=== PATIENT | female | born 1950 | race Caucasian/White ===

== ENCOUNTER 2017-04-26 00:44 | Emergency (ER) | payer OTHER ==
[2017-04-26] MEDS ORDERED: DILAUDID INJ IM ONE (00:56)
[2017-04-26] MEDS ORDERED: DILAUDID INJ ONE (00:59)
[2017-04-26 01:07] VITALS: BMI 30.2
[2017-04-26 01:17] LABS: BASOPHILS # (AUTO) 0.1 X10^3/uL (0.0-0.1); BASOPHILS % (AUTO) 0.8 % (0.2-1.0); EOSINOPHILS # (AUTO) 0.2 x10^3/uL (0.0-0.2); HEMATOCRIT 37.3 % (36.0-47.0); HEMOGLOBIN 12.6 g/dL (12.0-16.0); LYMPHOCYTES # (AUTO) 1.6 X10^3/uL (1.3-2.9); LYMPHOCYTES % (AUTO) 18.3 % (21.0-51.0); MEAN CORPUSCULAR HEMOGLOBIN 28.5 pg (27.0-34.0); MEAN CORPUSCULAR HGB CONC 33.7 g/dL (33.0-35.0); MEAN CORPUSCULAR VOLUME 84.6 fL (80.0-100.0); MONOCYTES # (AUTO) 0.8 x10^3/uL (0.3-0.8); MONOCYTES % (AUTO) 9.4 % (0.0-13.0); NEUTROPHILS # (AUTO) 5.9 x10^3/uL (2.2-4.8); NEUTROPHILS % (AUTO) 69.5 % (42.0-75.0); PLATELET COUNT 145 X10^3/uL (150.0-450.0); RED CELL DISTRIBUTION WIDTH 14.5 % (11.6-16.5); WHITE BLOOD COUNT 8.5 X10^3/uL (3.6-10.0)
--- NOTE | 2017-04-26 01:51 | CT ---
EXAM: CT left hip without contrast INDICATION: Left hip pain COMPARISION: No prior, no x-ray was ordered. TECHNIQUE: Axial CT examination left hip was performed. Coronal and sagittal reconstructions were created using the axial data. FINDINGS: No acute fracture or dislocation. The joint spaces are preserved. The soft tissues are normal. No ra diopaque foreign body. IMPRESSION: 1: No acute abnormality Reported By:
--- NOTE | 2017-04-26 01:52 | CT ---
EXAM: CT LUMBAR SPINE WITHOUT CONTRAST INDICATION: Falls, low back pain COMPARISION: No priors TECHNIQUE: Axial CT examination of the lumbar spine was performed without intravenous contrast. Coronal and sag ittal planes were reconstructed using the axial data. FINDINGS: Exam is limited due to the presence of metal implants which creates artifact and image degradation. There is bilateral pedicle screw and gabino fusion from L2 through L5. Interbody fusion is present as w ell. No acute fracture or subluxation. There is normal alignment of the lumbar spine. The central ca nal and neural foramen are obscured due to the metal artifact. IMPRESSION: Surgical fusion noted. Pedicle screw and gabino fusion from L2 through L5 is present. No acute abnormal ity. Reported By:
--- NOTE | 2017-04-26 01:58 | DR.GENAD ---
HPI - Complaint/Symptoms Chief Complaint Doctors Comments: Patient states that she has been falling a lot. She fell yesterday at 1700 now has lumbar and left hip pain. She admits to using a walker infrequently in [place] of a cane. 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 Surgery, Hysterectomy, Mastectomy, Ortho Surgery (Back surgery) - Family History Family Medical History: Diabetes Mellitus, Cancer, [place], Hypertension - Social History Do you use any recreational Drugs:: No ROS - Review of Systems Eyes: No Symptoms Reported ENTM: No Symptoms Reported Respiratoy: No Symptoms Reported Cardiovascular: No Symptoms Reported Gastrointestinal/Abdominal: No Symptoms Reported Genitourinary: No Symptoms Reported Neurological: No Symptoms Reported Musculoskeletal: No Symptoms Reported Integumentary: No Symptoms Reported Hematologic/Lymphatic: No Symptoms Reported Endocrine: No Symptoms Reported Psychiatric: No Symptoms Reported All Other Systems: Reviewed and Negative PE - Vital Signs Vitals: Blood Pressure [Right Arm] 117/58 Blood Pressure 117/58 - General Limitations: No Limitations General Appearance: Alert, In No Apparent Distress - Head Head Exam: Normal Inspection, Atraumatic - Eyes Eye exam: Normal Appearance, PERRL, EOMI - ENT ENT Exam: Normal Exam External Ear Exam: Normal External Inspection TM/Canal Exam: Bilateral Normal Nose Exam: Normal Nose Exam Mouth Exam: Normal Inspection Throat Exam: Normal Inspection - Neck Neck Exam: Normal Inspection - Chest Chest Inspection: Normal Inspection - Respiratory Respiratory Exam: Bilateral Clear to Auscultation - Cardiovascular Cardiovascular Exam: Regular Rate, Normal Rhythm - Abdominal Exam Abdominal Exam: Normal Inspection, Normal Bowel Sounds - Extremities Extremities Exam: Normal Inspection - Back Back Exam: Normal Inspection, Vertebral Tenderness - Neurologic Neurological Exam: Alert, Oriented X3, CN II-XII Intact - Psychiatric Psychiatric Exam: Normal Affect, Normal Mood - Skin Skin Exam: Warm, Dry, Intact ROR - XRAY XRAY Interpreted by: Radiologist (Left Hip: No acute abnormality; Lumbar CT: surgical fusion noted. Pedicle screw and gabino fusion from L2 through L5 is present no acute abnormality) - Diagnosis Discharge Problem: Fall as cause of accidental injury at home as place of occurrence Qualifiers: Encounter type: subsequent encounter Qualified Code(s): W19.XXXD - Unspecified fall, subsequent encounter; Y92.009 - Unspecified place in unspecified non- institutional (private) residence as the place of occurrence of the external cause Cellulitis Qualifiers: Site of cellulitis: extremity Site of cellulitis of extremity: lower extremity Laterality: left Qualified Code(s): L03.116 - Cellulitis of left lower limb - Discharge Plan Condition: Stable - Follow ups/Referrals Follow ups/Referrals: Sy Morales [Primary Care Provider] - 3 days - Instructions
[2017-04-26 02:05] VITALS: BP 160/82
[2017-04-26] MEDS ORDERED: AUGMENTIN 500 MG/125 MG TAB PO ONE ×2 (02:13→02:14)
== END 2017-04-26 02:24 | disposition home or self-care (01) ==
LOC: ER 00:44
DX: L03.116 Cellulitis of left lower limb (principal); L53.8 Other specified erythematous conditions; W19.XXXA Unspecified fall, initial encounter; Y92.009 Unspecified place in unspecified non-institutional (private) residence as the place of occurrence of the external cause
CPT/HCPCS: 36415; 72131; 73700; 85025; 86140; 96372; 99283

== ENCOUNTER 2017-06-21 15:53 | Emergency (ER) | payer OTHER ==
[2017-06-21 16:10] VITALS: BMI 33.0
--- NOTE | 2017-06-21 16:18 | DR.GENAD ---
HPI - PCP Primary Care Physician: PAIGE - HPI Comment HPI Comment: HISTORY BELOW. - Complaint/Symptoms Chief Complaint Doctors Comments: FELL AT HOME TODAY, SEVERAL TIMES. COMPLAINING OF NECK PAIN, SHOULDER PAIN HIP PAIN AND KNEE PAIN BOTH SIDES. HIT HER HEAD WELL AND TAKES BLOOD THINNERS. NO LOC. Chief Complaint:: PT HAD FALL AT HOME, C/O PAIN FROM NECK TO HIP. Self Treatment fo Chief Complaint: PT STATES SHE LIVES ALONE AND SHE FELL 5X TODAY. 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 Surgery, Hysterectomy, Mastectomy, Ortho Surgery Past Surgical History Comment: LEFT SIDE MASTECTOMY - Family History History of Family Medical Conditions: Yes Family Medical History: Diabetes Mellitus, Cancer, [place], Hypertension - Social History Does patient currently use any type of tobacco product: No Have you used tobacco products in the last 12 months: No Type of Tobacco Use: None Does any household member use tobacco: No Alcohol Use: None Do you use any recreational Drugs:: No Lives With: Alone Lives Where: Home - infectious screening In the last 2 months have you had wt loss of >10#?: NO Have you had fever, night sweats or hemotysis?: No Have you traveled outside the country in the last 6 months?: No Isolation: Standard ROS - Review of Systems Constitutional: Weakness, Fatigue. negative: Chills, Fever Eyes: No Symptoms Reported. negative: Eye Pain, Discharge ENTM: No Symptoms Reported. negative: Ear Pain, Nose Discharge, Nose Congestion , Throat Pain Respiratoy: Non-Productive Cough, Short of Breath, Wheezing. negative: Productive Cough, Hemoptysis Cardiovascular: Chest Pain, Edema Gastrointestinal/Abdominal: Abdominal Pain, Nausea. negative: Constipation, Diarrhea, Vomiting Genitourinary: No Symptoms Reported. negative: Dysuria, Frequency, Hematuria Neurological: Headache, Weakness, Dizziness Musculoskeletal: Joint Pain, Joint Swelling, Muscle Pain, Neck, Hip, Knee Integumentary: Bruises Hematologic/Lymphatic: Easy Bleeding, Easy Bruising Endocrine: No Symptoms Reported All Other Systems: Reviewed and Negative PE - Vital Signs Vitals: Temperature 97.6 F Pulse Rate [Right Brachial] 72 Pulse Rate 70 Respiratory Rate 20 Blood Pressure [Right Arm] 111/68 Blood Pressure 109/62 O2 Sat by Pulse Oximetry 95 - General Limitations: No Limitations General Appearance: Alert - Head Head Exam: Normal Inspection - Eyes Eye exam: Normal Appearance - ENT ENT Exam: Normal External Ear Exam External Ear Exam: Normal External Inspection TM/Canal Exam: Bilateral Normal Nose Exam: Normal Nose Exam Mouth Exam: Normal Inspection Throat Exam: Normal Inspection - Neck Neck Exam: Trachea Midline - Chest Chest Inspection: Symmetric Chest Wall Rise - Respiratory Respiratory Exam: Normal Lung Sounds Bilat Respiratory Exam: Bilateral Wheezing, Bilateral Rhonchi, Upper Rhonchi, Lower Wheezing, Lower Rhonchi - Cardiovascular Cardiovascular Exam: Regular Rate, Normal Rhythm, Normal Heart Sounds - Abdominal Exam Abdominal Exam: Normal Bowel Sounds, Soft. negative: Tenderness - Extremities Extremities Exam: Tenderness, Edema, Joint Swelling. negative: Full ROM ( DECREASE) - Back Back Exam: Paraspinal Tenderness - Neurologic Neurological Exam: Alert, Oriented X3 - Psychiatric Psychiatric Exam: Normal Affect, Normal Mood - Skin Skin Exam: Erythema MDM - Additional Information Additional Information Obtained From: Family - Differential Diagnosis Differential Diagnosis: EDEMA, MULTIPLE SPRAIN AND STRAIN, FRACTURES, CONTUSIONS Course - Treatment Treatment: SEE ORDERS. - Education/Counseling Education/Counseling: Patient, Family, Education Educated On: Treatment, Diagnosis, Needs for Follow Up ROR - Labs Reviewed Laboratory Results Reviewed?: Yes Result Diagrams: 06/21/17 16:39 06/21/17 16:39 Laboratory: WBC 7.6 X10^3/uL (3.6-10.0) 06/21/17 16:39 RBC 4.79 X10^6/uL (3.5-5.4) 06/21/17 16:39 Hgb 13.6 g/dL (12.0-16.0) 06/21/17 16:39 Hct 40.1 % (36.0-47.0) 06/21/17 16:39 MCV 83.7 fL (80.0-100.0) 06/21/17 16:39 MCH 28.4 pg (27.0-34.0) 06/21/17 16:39 MCHC 33.9 g/dL (33.0-35.0) 06/21/17 16:39 RDW 15.2 % (11.6-16.5) 06/21/17 16:39 Plt Count 163 X10^3/uL (150.0-450.0) 06/21/17 16:39 MPV 8.4 fL (7.4-11.0) 06/21/17 16:39 Neut % 72.3 % (42.0-75.0) 06/21/17 16:39 Lymph % 19.6 % (21.0-51.0) L 06/21/17 16:39 [place] % 5.6 % (0.0-13.0) 06/21/17 16:39 Eos % 2.0 % (0.9-2.9) 06/21/17 16:39 Baso % 0.5 % (0.2-1.0) 06/21/17 16:39 Neut # 5.5 x10^3/uL (2.2-4.8) H 06/21/17 16:39 Lymph # 1.5 X10^3/uL (1.3-2.9) 06/21/17 16:39 [place] # 0.4 x10^3/uL (0.3-0.8) 06/21/17 16:39 Eos # 0.2 x10^3/uL (0.0-0.2) 06/21/17 16:39 Baso # 0.0 X10^3/uL (0.0-0.1) 06/21/17 16:39 Absolute Nucleated RBC 0.1 /100WBC 06/21/17 16:39 Sodium 142 mmol/L (136-145) 06/21/17 16:39 Corrected Sodium 146 mmol/L (136-145) H 06/21/17 16:39 Potassium 4.0 mmol/L (3.5-5.1) 06/21/17 16:39 Chloride 106 mmol/L (98-107) 06/21/17 16:39 Carbon Dioxide 29.8 mmol/L (21-32) 06/21/17 16:39 BUN 24 mg/dL (7-18) H 06/21/17 16:39 Creatinine 1.43 mg/dL (0.55-1.02) H 06/21/17 16:39 Est GFR (MDRD) Af Amer 47 (>60) L 06/21/17 16:39 Est GFR (MDRD) Non-Af 39 (>60) L 06/21/17 16:39 Glucose 247 mg/dL (65-99) H 06/21/17 16:39 Calcium 9.1 mg/dL (8.5-10.1) 06/21/17 16:39 Corrected Calcium 9.7 mg/dL (8.5-10.1) 06/21/17 16:39 Total Bilirubin 0.30 mg/dL (0.2-1.0) 06/21/17 16:39 AST 19 Units/L (15-37) 06/21/17 16:39 ALT 37 Units/L (12-78) 06/21/17 16:39 Alkaline Phosphatase 102 Units/L (46-116) 06/21/17 16:39 Creatine Kinase 302 Units/L (26-192) H 06/21/17 16:39 CK-MB (CK-2) 2.5 ng/mL (0-4.0) 06/21/17 16:39 CK/CKMB % Calc 0.8 % (<4) 06/21/17 16:39 Troponin I < 0.02 ng/mL (0-1.5) 06/21/17 16:39 B-Natriuretic Peptide 22.2 pg/mL (0-79) 06/21/17 16:39 Total Protein 7.1 g/dL (6.4-8.2) 06/21/17 16:39 Albumin 3.3 g/dL (3.4-5.0) L 06/21/17 16:39 Globulin 3.8 g/dL (2.5-4.5) 06/21/17 16:39 Albumin/Globulin Ratio 0.9 Ratio (1.1-2.1) L 06/21/17 16:39 - XRAY XRAY Interpreted by: Radiologist XRAY Findings: REPORT DISCUSS WITH PATIENT AND FAMILY. - Diagnosis Discharge Problem: Multiple contusions, Multiple sprains, Muscle strain, multiple sites Edema Qualifiers: Edema type: generalized Qualified Code(s): R60.1 - Generalized edema Shoulder sprain Qualifiers: Encounter type: initial encounter Shoulder sprain type: unspecified sprain Laterality: unspecified laterality Qualified Code(s): S43.409A - Unspecified sprain of unspecified shoulder joint, initial encounter Knee sprain Qualifiers: Encounter type: initial encounter Involved ligament of knee: unspecified ligament Laterality: unspecified laterality Qualified Code(s): S83.90XA - Sprain of unspecified site of unspecified knee, initial encounter Hip sprain Qualifiers: Encounter type: initial encounter Laterality: unspecified laterality Qualified Code(s): S73.109A - Unspecified sprain of unspecified hip, initial encounter - Discharge Plan Disposition: HOME, SELF-CARE Condition: Stable - Follow ups/Referrals Follow ups/Referrals: Sy Morales [Primary Care Provider] - 1 day - Instructions Instructions: Knee Pain, Fall Prevention in the Home, [id number], Shoulder Sprain, Musculoskeletal Pain, Fall Prevention in the Home, Edema, [id number] Additional Instructions: RETURN TO ED IF WORSE.
[2017-06-21] MEDS ORDERED: LASIX IVP ONE ×2 (16:30→17:59)
[2017-06-21 16:50] LABS: BASOPHILS % (AUTO) 0.5 % (0.2-1.0); EOSINOPHILS # (AUTO) 0.2 x10^3/uL (0.0-0.2); HEMATOCRIT 40.1 % (36.0-47.0); HEMOGLOBIN 13.6 g/dL (12.0-16.0); LYMPHOCYTES # (AUTO) 1.5 X10^3/uL (1.3-2.9); LYMPHOCYTES % (AUTO) 19.6 % (21.0-51.0); MEAN CORPUSCULAR HEMOGLOBIN 28.4 pg (27.0-34.0); MEAN CORPUSCULAR HGB CONC 33.9 g/dL (33.0-35.0); MEAN CORPUSCULAR VOLUME 83.7 fL (80.0-100.0); MEAN PLATELET VOLUME 8.4 fL (7.4-11.0); MONOCYTES # (AUTO) 0.4 x10^3/uL (0.3-0.8); MONOCYTES % (AUTO) 5.6 % (0.0-13.0); NEUTROPHILS # (AUTO) 5.5 x10^3/uL (2.2-4.8); NEUTROPHILS % (AUTO) 72.3 % (42.0-75.0); PLATELET COUNT 163 X10^3/uL (150.0-450.0); RED BLOOD COUNT 4.79 X10^6/uL (3.5-5.4); RED CELL DISTRIBUTION WIDTH 15.2 % (11.6-16.5); WHITE BLOOD COUNT 7.6 X10^3/uL (3.6-10.0)
[2017-06-21 17:05] LABS: BLOOD UREA NITROGEN 24 mg/dL (7-18); CALCIUM 9.1 mg/dL (8.5-10.1); CARBON DIOXIDE 29.8 mmol/L (21-32); CHLORIDE 106 mmol/L (98-107); COR NA(FOR HYPERGLY) 146 mmol/L (136-145); CREATININE 1.43 mg/dL (0.55-1.02); SODIUM 142 mmol/L (136-145); TROPONIN I < 0.02 ng/mL (0-1.5); eGFR BLACK RACES 47 (>60); eGFR NON BLACK RACES 39 (>60)
[2017-06-21 17:09] LABS: ALANINE AMINOTRANSFERASE 37 Units/L (12-78); ALBUMIN 3.3 g/dL (3.4-5.0); ALKALINE PHOSPHATASE 102 Units/L (46-116); ASPARTATE AMINO TRANSFERASE 19 Units/L (15-37); B-TYPE NATRIURETIC PEPTIDE 22.2 pg/mL (0-79); CKMB % 0.8 % (<4); COR CA(FOR HYPOALB) 9.7 mg/dL (8.5-10.1); CREATINE KINASE 302 Units/L (26-192); CREATINE KINASE MB 2.5 ng/mL (0-4.0); TOTAL PROTEIN 7.1 g/dL (6.4-8.2)
[2017-06-21] MEDS ORDERED: NORCO 10/325 TAB PO ONE (18:08)
--- NOTE | 2017-06-21 18:08 | RAD ---
Left knee, four views Indication: Fall with left knee pain. Findings: No acute cortical destruction or malalignment. There is mild tricompartmental DJD. No large joint effusion. Multiple vascular clips are seen within the medial leg. Impression: No acute left knee fracture or subluxation. Mild tricompartmental DJD. Reported By:
--- NOTE | 2017-06-21 18:09 | RAD ---
Right knee, four views Indication: Knee pain after fall. Findings: No acute cortical disruption or malalignment. There is mild tricompartmental DJD. No large joint effusion. Impression: No acute knee fracture or subluxation. Mild tricompartmental DJD. Reported By:
[2017-06-21] MEDS ORDERED: NORCO 10/325 TAB ONE (18:10)
--- NOTE | 2017-06-21 18:14 | RAD ---
Right shoulder, three views Indication: Fall with right shoulder pain. Findings: The glenohumeral and acromioclavicular joints are intact. No acute cortical destruction or malalignment identified. No focal soft tissue abnormality identified. The visualized portions of the chest are unremarkable. Impression: No acute right shoulder fracture or subluxation. Reported By:
--- NOTE | 2017-06-21 18:15 | RAD ---
Left shoulder, three views Indication: Fall with shoulder pain. Findings: The acromioclavicular and glenohumeral joints are grossly maintained. No acute cortical dis ruption or malalignment identified. No focal soft tissue abnormality. Surgical clips suggest previous axillary dissection. The visualized chest demonstrates no significant abnormality. Impression: No acute left shoulder fracture or subluxation. Reported By:
--- NOTE | 2017-06-21 18:18 | RAD ---
Bilateral hips, two views each Indication: Bilateral foot pain after fall Findings: No acute cortical disruption or malalignment of the hips identified. The femoral heads are normally seated within the acetabula. There are degenerative changes of the bilateral SI joints and p ubic symphysis. The pelvic ring is intact. Long segment lumbar fusion noted. There is generalized ost eopenia. Impression: No evidence for acute hip fracture or subluxation. Generalized osteopenia. Degenerative changes as above. Reported By:
--- NOTE | 2017-06-21 20:29 | RAD ---
HISTORY: Chest pain after fall Study: Portable supine AP chest Comparison: November 09, 2014 Findings: The trachea is midline. The cardiac silhouette is normal status post sternotomy for coronary artery bypass grafting surgery.. There is mild chronic interstitial lung disease. There is no pneumothorax or effusion. There are surgical clips in the left axilla status post mastectomy.. The bony thorax is unremarkable. IMPRESSION: 1. No acute cardiopulmonary disease. Reported By:
--- NOTE | 2017-06-21 20:54 | CT ---
HISTORY: Fall and headache Study: CT brain without contrast Comparison: None Technique: Multiple axial images of the brain were obtained from the skull base to the vertex without administra tion of IV contrast. Sagittal and coronal reformations were provided. Findings: No acute intraparenchymal hemorrhage or mass can be identified. No extra-axial fluid collections are seen. No alteration in the attenuation of the brain parenchyma can be identified to suggest acute o r subacute ischemic change. The ventricular system is symmetric and nondilated. The extracranial st ructures are grossly unremarkable. IMPRESSION: 1. No acute intracranial process can be identified. Reported By:
--- NOTE | 2017-06-21 21:18 | CT ---
CT CERVICAL SPINE WITHOUT CONTRAST CLINICAL HISTORY: 66-year-old female status post fall with neck pain. COMPARISON: None. TECHNIQUE: Multiple, noncontrasted axial CT images were obtained from the skull base to the cervical -thoracic junction and reformatted in the sagittal and coronal planes. FINDINGS: Straightening of the cervical lordosis as imaged. Multilevel degenerative change and spondy loarthropathy without significant central canal or neural foraminal stenosis. The atlanto-axial and a tlanto-occipital relationships are normal. The posterior elements are normal in appearance and alignm ent. The soft tissues of the neck and lung apices are normal. Status post median sternotomy. IMPRESSION: No evidence of acute fracture or malalignment. Reported By:
[2017-06-21 21:35] VITALS: BP 111/68
== END 2017-06-21 22:06 | disposition home or self-care (01) ==
LOC: ER 16:09
DX: S43.409A Unspecified sprain of unspecified shoulder joint, initial encounter (principal); S83.90XA Sprain of unspecified site of unspecified knee, initial encounter; S73.109A Unspecified sprain of unspecified hip, initial encounter; T14.8 Other injury of unspecified body region; T07 Unspecified multiple injuries; M85.80 Other specified disorders of bone density and structure, unspecified site; R60.1 Generalized edema; W19.XXXA Unspecified fall, initial encounter; Y92.9 Unspecified place or not applicable
CPT/HCPCS: 36415; 70450; 71010; 72125; 73030; 73521; 73564; 80053; 82550; 82553; 83880; 84484; 85025; 93005; 93010; 96365; 96374; 99283; A4222; J1940

== ENCOUNTER 2018-05-25 13:36 | Observation (INO) ==
[2018-05-25] MEDS ORDERED: ASPIRIN PO ONE (13:47)
[2018-05-25] MEDS ORDERED: NS 1000 ML 300 ML IV ONE (13:47)
--- NOTE | 2018-05-25 13:53 | DR.DIZZY ---
HPI - Time seen Time seen: 13:50 - PCP Primary Care Physician: PAIGE - Complaint Chief Complaint Doctor Comments: Patient is complaining diffuse weakness with dizziness and not being able to stand to cook her meals for the past seven days. states she has fallen at home but denies head trauma or LOC. States her back hurts and her left foot hurts. She has been having swelling in her legs and feet. States she had chest pain and SOB yesterday but is not having any chest pain today. She denies dysuria or hematuria. Chief Complaint:: PT. C/O GENERALIZED WEAKNESS AND FREQUENT FALLS. PT. STATES SHE BEGAN FALLING LAST WEEK. - Nurses Notes Reviewed Nurses Notes Review: Yes - Source History Provided: Patient, EMS - Mode of Arrival Mode of Arrival: EMS - Timing Onset of Chief Complaint: 05/18/18 Came on: Gradually Symptom Onset: Unknown - Duration Duration: Constant How lon Duration: Weeks - Location of Weakness Weakness Location: Generalized - Context Onset: At rest, With light exertion Does pt take pot. toxic medication?: No History of: DM Stroke Symptoms: None - Severity Severity: Normal activity level - Modifying factors Worsens: Nothing - Associated signs and symptoms Associated Signs and Symptoms: Weak PMH - PMH Past Medical History: Yes Past Medical History: CHF, Coronary Artery Disease, Diabetes, Hypertension, Hyperthyroidism, Hypothyroidism Past Medical History Comment: BREAST CANCER Past Surgical History: Yes Surgical History: Angioplasty/Stents, CABG/Valve Surgery, Cholecystectomy, NURSE WOUND Surgery, Hysterectomy, Mastectomy, Ortho Surgery Past Surgical History Comment: BILATERAL MASTECTOMY - Family History History of Family Medical Conditions: Yes Family Medical History: Diabetes Mellitus, Cancer, [place], Hypertension - Social History Does patient currently use any type of tobacco product: No Have you used tobacco products in the last 12 months: No Type of Tobacco Use: None Does any household member use tobacco: No Alcohol Use: None Do you use any recreational Drugs:: No Lives With: Alone Lives Where: Home - infectious screening In the last 2 months have you had wt loss of >10#?: NO Have you had fever, night sweats or hemotysis?: No Have you traveled outside the country in the last 6 months?: No Isolation: Standard ROS - Review of Systems Constitutional: No Symptoms Reported, Weakness, Fatigue. negative: See HPI, Chills, Diaphoresis, Fever, Malaise, Irritable, Loss of Appetite, Other Eyes: No Symptoms Reported ENTM: No Symptoms Reported Respiratoy: No Symptoms Reported. negative: See HPI, Productive Cough, Non- Productive Cough, Moist Cough, Dry Cough, Hacking Cough, Barking Cough, Brassy Cough, Orthopnea, Short of Breath, Stridor, Wheezing, Hemoptysis, Other Cardiovascular: No Symptoms Reported, Chest Pain, Edema. negative: See HPI, Palpitations, Syncope, Cyanosis, Skin Mottling, Other Gastrointestinal/Abdominal: No Symptoms Reported. negative: See HPI, Abdominal Pain, Constipation, Diarrhea, Nausea, Vomiting, Food Intolerance, Other Genitourinary: No Symptoms Reported Neurological: No Symptoms Reported, Weakness, Dizziness, Problems Walking Musculoskeletal: No Symptoms Reported, Back Pain, Left, Foot Integumentary: No Symptoms Reported Hematologic/Lymphatic: No Symptoms Reported Endocrine: No Symptoms Reported Psychiatric: No Symptoms Reported PE - General Limitations: No Limitations General Appearance: Alert, In Distress (moderate), Obese - Head Head Exam: Normal Inspection, Atraumatic, Normocephalic - Eyes Eye exam: Normal Appearance, PERRL, EOMI. negative: Scleral Icterus, Conjunctival Injection, Nystagmus, Miosis, Mydrasis, Periorbital Swelling, Periorbital Tenderness, Other Pupils: Regular, Round: Bilateral Sclera/Conjunctival: Normal Inspection: Bilateral Anterior Chamber: Normal Inspection: Bilateral Posterior Chamber: Deferred: Bilateral - ENT ENT Exam: Normal Exam, Normal Oropharynx, Normal External Ear Exam, Mucous Membranes Moist, TM's Normal Bilaterally - Neck Neck Exam: Normal Inspection, Full ROM, Trachea Midline. negative: Tenderness, Meningismus, Lymphadenopathy, Thyromegaly, Other - Chest Chest Inspection: Normal Inspection, Symmetric Chest Wall Rise - Respiratory Respiratory Exam: Normal Lung Sounds Bilat Respiratory Exam: Bilateral Clear to Auscultation - Cardiovascular Cardiovascular Exam: Regular Rate, Normal Rhythm, Normal Heart Sounds, Systolic Murmur - Abdominal Exam Abdominal Exam: Normal Inspection, Normal Bowel Sounds, Soft, Distention, Tenderness (epigastric tenderness) Abdominal Tenderness: Epigastrium, Mild - Rectal Rectal Exam: Deferred - Extremeties Extremities Exam: Normal Inspection, Full ROM, Tenderness (left foot with bruising and edema 2+ dorsal foot) - Back Back Exam: Normal Inspection, Full ROM - Neurologic Neurological Exam: Alert, Oriented X3, CN II-XII Intact, Reflexes Normal. negative: Normal Gait (gait not tested) Patient Oriented To: Person, Place, Time Speech: Fluid Speech Cranial Nerve Exam: EOM Function (II, III, IV, ): Normal, Facial Sensation (V) : Normal, Facial Palsy (VII): Normal, Gag reflex (XI): Normal, Spinal Accessory Function (XI): Normal, Tongue Deviation: Normal Cerebellar Function: Finger to Nose: Normal Cerebellar Function: negative: Normal Gait (gait not tested) Motor Strength - LUE: 5/5 Motor Strength - RUE: 5/5 Motor Strength - LLE: 5/5 Motor Strength - RLE: 5/5 Upper Motor Neuron Exam: Babinski Sign: Normal, Sensory Extinction: Normal Sensory Exam Upper Extremity: Light Touch: Normal, Temperature: Normal Sensory Exam Lower Extremity: Temperature: Normal, 2 Point Discrimination: Normal DTR: bicep (L): 2+, bicep (R): 2+, Patellar (L): 2+, patellar (R): 2+ - Psychiatric Psychiatric Exam: Normal Affect, Normal Mood - Skin Skin Exam: Warm, Dry, Intact, Normal Color - Vital Signs Vitals: Temperature 98.9 F Pulse Rate [Apical] 70 Pulse Rate 78 Respiratory Rate 13 Blood Pressure [Left Calf] 108/59 Blood Pressure [Right Arm] 121/58 Blood Pressure 89/45 O2 Sat by Pulse Oximetry 94 ROR - Labs Reviewed Laboratory Results Reviewed?: Yes (All labs and x-ray results reviewed and discussed with patient) Result Diagrams: 05/25/18 14:23 05/25/18 14:23 - XRAY XRAY Interpreted by: Radiologist (CXR: No acue cardiopulmonary disease) - EKG Rate: 78 [place]: Normal Rhythm: NSR Block: None Hypertrophy: None ST: Nonsp - Labs Reviewed Laboratory: WBC 6.5 X10^3/uL (3.6-10.0) 05/25/18 14:23 RBC 3.97 X10^6/uL (3.5-5.4) 05/25/18 14:23 Hgb 11.4 g/dL (12.0-16.0) L 05/25/18 14:23 Hct 33.2 % (36.0-47.0) L 05/25/18 14:23 MCV 83.8 fL (80.0-100.0) 05/25/18 14:23 MCH 28.8 pg (27.0-34.0) 05/25/18 14:23 MCHC 34.4 g/dL (33.0-35.0) 05/25/18 14:23 RDW 15.5 % (11.6-16.5) 05/25/18 14:23 Plt Count 131 X10^3/uL (150.0-450.0) L 05/25/18 14:23 MPV 8.1 fL (7.4-11.0) 05/25/18 14:23 Neut % (Auto) 57.7 % (42.0-75.0) 05/25/18 14:23 Lymph % (Auto) 28.7 % (21.0-51.0) 05/25/18 14:23 [place] % (Auto) 9.9 % (0.0-13.0) 05/25/18 14:23 Eos % (Auto) 3.1 % (0.9-2.9) H 05/25/18 14:23 Baso % (Auto) 0.6 % (0.2-1.0) 05/25/18 14:23 Neut # (Auto) 3.8 x10^3/uL (2.2-4.8) 05/25/18 14:23 Lymph # (Auto) 1.9 X10^3/uL (1.3-2.9) 05/25/18 14:23 [place] # (Auto) 0.6 x10^3/uL (0.3-0.8) 05/25/18 14:23 Eos # (Auto) 0.2 x10^3/uL (0.0-0.2) 05/25/18 14:23 Baso # (Auto) 0.0 X10^3/uL (0.0-0.1) 05/25/18 14:23 Absolute Nucleated RBC 0.0 /100WBC 05/25/18 14:23 INR Target Range - 05/25/18 14:23 INR 0.99 (0.8-1.3) 05/25/18 14:23 APTT 29.5 SECONDS (22.9-36.5) 05/25/18 14:23 PTT Comment - 05/25/18 14:23 Sodium 140 mmol/L (136-145) 05/25/18 14:23 Corrected Sodium TNP 05/25/18 14:23 Potassium 4.0 mmol/L (3.5-5.1) 05/25/18 14:23 Chloride 108 mmol/L (98-107) H 05/25/18 14:23 Carbon Dioxide 25.9 mmol/L (21-32) 05/25/18 14:23 BUN 53 mg/dL (7-18) H 05/25/18 14:23 Creatinine 2.25 mg/dL (0.55-1.02) H 05/25/18 14:23 Est GFR (MDRD) Af Amer 28 (>60) L 05/25/18 14:23 Est GFR (MDRD) Non-Af 23 (>60) L 05/25/18 14:23 Glucose 72 mg/dL (65-99) 05/25/18 14:23 Calcium 8.4 mg/dL (8.5-10.1) L 05/25/18 14:23 Corrected Calcium 9.2 mg/dL (8.5-10.1) 05/25/18 14:23 Magnesium 2.3 mg/dL (1.7-2.9) 05/25/18 14:23 Total Bilirubin 0.20 mg/dL (0.2-1.0) 05/25/18 14:23 AST 31 Units/L (15-37) 05/25/18 14:23 ALT 48 Units/L (12-78) 05/25/18 14:23 Alkaline Phosphatase 78 Units/L (46-116) 05/25/18 14:23 Creatine Kinase 401 Units/L (26-192) H 05/25/18 14:23 CK-MB (CK-2) 5.3 ng/mL (0-4.0) H* 05/25/18 14:23 CK/CKMB % Calc 1.3 % (<4) 05/25/18 14:23 Troponin I < 0.02 ng/mL (0-1.5) 05/25/18 14:23 B-Natriuretic Peptide 38.5 pg/mL (0-79) 05/25/18 14:23 Total Protein 6.3 g/dL (6.4-8.2) L 05/25/18 14:23 Albumin 3.0 g/dL (3.4-5.0) L 05/25/18 14:23 Globulin 3.3 g/dL (2.5-4.5) 05/25/18 14:23 Albumin/Globulin Ratio 0.9 Ratio (1.1-2.1) L 05/25/18 14:23 Specimen Type Catherized urine 05/25/18 14:40 Urine Color Yellow (YELLOW) 05/25/18 14:40 Urine Appearance Clear (CLEAR) 05/25/18 14:40 Urine pH 5.0 (5.0 - 8.0) 05/25/18 14:40 Ur Specific [place] 1.015 (1.000-1.030) 05/25/18 14:40 Urine Protein Negative (NEGATIVE) 05/25/18 14:40 Urine Glucose (UA) Negative (NEGATIVE) 05/25/18 14:40 Urine Ketones Negative (NEGATIVE) 05/25/18 14:40 Urine Occult Blood 2+ (NEGATIVE) 05/25/18 14:40 Urine Nitrite Negative (NEGATIVE) 05/25/18 14:40 Urine Bilirubin Negative (NEGATIVE) 05/25/18 14:40 Urine Urobilinogen Normal (NORMAL) 05/25/18 14:40 Ur Leukocyte Esterase Negative (NEGATIVE) 05/25/18 14:40 Urine RBC 0-2 /HPF (NONE SEEN) 05/25/18 14:40 Urine WBC None seen /HPF (NONE SEEN) 05/25/18 14:40 Ur Squamous Epith Cells Few /HPF (NEGATIVE) 05/25/18 14:40 Amorphous Sediment Trace /HPF (NEGATIVE) 05/25/18 14:40 Urine Bacteria Negative /HPF (NEGATIVE) 05/25/18 14:40 Ur Culture Indicated? No/not indicated 05/25/18 14:40 - Diagnosis Discharge Problem: Symptomatic hypotension, Chronic kidney disease, Weakness generalized Altered mental status Qualifiers: Altered mental status type: unspecified Qualified Code(s): R41.82 - Altered mental status, unspecified - Discharge Plan Disposition: ADMITTED INPATIENT Condition: Stable - Follow ups/Referrals Follow ups/Referrals: Sy Morales [Primary Care Provider] - 3 days - Instructions
[2018-05-25] MEDS ORDERED: NS 1000 ML 1,000 ML ONE (13:57)
--- NOTE | 2018-05-25 14:18 | RAD ---
HISTORY: Generalized weakness Study: Single-view of the chest Comparison: June 21, 2017 Findings: The patient is slightly rotated The cardiac silhouette is unremarkable. The lungs are clear without focal infiltrate or effusion. Postoperative changes of midline sternotomy are noted. IMPRESSION: 1. No acute cardiopulmonary disease. Reported By:
--- NOTE | 2018-05-25 14:21 | RAD ---
Examination: Left foot, four views History: Fell Findings: No definite evidence for fracture or dislocation or acute articular deformity. There is mar ked soft tissue swelling over the dorsum of the foot suggesting hematoma. Impression: No fracture demonstrated. Reported By:
[2018-05-25 14:39] LABS: BASOPHILS % (AUTO) 0.6 % (0.2-1.0); EOSINOPHILS # (AUTO) 0.2 x10^3/uL (0.0-0.2); EOSINOPHILS % (AUTO) 3.1 % (0.9-2.9); HEMATOCRIT 33.2 % (36.0-47.0); HEMOGLOBIN 11.4 g/dL (12.0-16.0); LYMPHOCYTES # (AUTO) 1.9 X10^3/uL (1.3-2.9); LYMPHOCYTES % (AUTO) 28.7 % (21.0-51.0); MEAN CORPUSCULAR HEMOGLOBIN 28.8 pg (27.0-34.0); MEAN CORPUSCULAR HGB CONC 34.4 g/dL (33.0-35.0); MEAN CORPUSCULAR VOLUME 83.8 fL (80.0-100.0); MEAN PLATELET VOLUME 8.1 fL (7.4-11.0); MONOCYTES # (AUTO) 0.6 x10^3/uL (0.3-0.8); MONOCYTES % (AUTO) 9.9 % (0.0-13.0); NEUTROPHILS # (AUTO) 3.8 x10^3/uL (2.2-4.8); NEUTROPHILS % (AUTO) 57.7 % (42.0-75.0); PLATELET COUNT 131 X10^3/uL (150.0-450.0); RED BLOOD COUNT 3.97 X10^6/uL (3.5-5.4); RED CELL DISTRIBUTION WIDTH 15.5 % (11.6-16.5); WHITE BLOOD COUNT 6.5 X10^3/uL (3.6-10.0)
[2018-05-25 14:52] LABS: BLOOD UREA NITROGEN 53 mg/dL (7-18); CALCIUM 8.4 mg/dL (8.5-10.1); CARBON DIOXIDE 25.9 mmol/L (21-32); CHLORIDE 108 mmol/L (98-107); CREATININE 2.25 mg/dL (0.55-1.02); SODIUM 140 mmol/L (136-145); TROPONIN I < 0.02 ng/mL (0-1.5); eGFR NON BLACK RACES 23 (>60)
[2018-05-25 14:57] LABS: ALANINE AMINOTRANSFERASE 48 Units/L (12-78); ALKALINE PHOSPHATASE 78 Units/L (46-116); ASPARTATE AMINO TRANSFERASE 31 Units/L (15-37); COR CA(FOR HYPOALB) 9.2 mg/dL (8.5-10.1); CREATINE KINASE 401 Units/L (26-192); MAGNESIUM 2.3 mg/dL (1.7-2.9); TOTAL PROTEIN 6.3 g/dL (6.4-8.2)
[2018-05-25] MEDS ORDERED: ASPIRIN ONE (14:59)
[2018-05-25] MEDS ORDERED: NARCAN INJ IVP ONE ×2 (15:03)
[2018-05-25] MEDS ORDERED: NARCAN INJ ONE (15:04)
[2018-05-25 15:07] LABS: B-TYPE NATRIURETIC PEPTIDE 38.5 pg/mL (0-79)
[2018-05-25 15:22] LABS: BILIRUBIN,URINE NEGATIVE (NEGATIVE); BLOOD/HEMOGLOBIN,URINE 2+ (NEGATIVE); GLUCOSE, URINE NEGATIVE (NEGATIVE); KETONES,URINE NEGATIVE (NEGATIVE); LEUKOCYTE ESTERASE ,URINE NEGATIVE (NEGATIVE); NITRITES,URINE NEGATIVE (NEGATIVE); PROTEIN,URINE NEGATIVE (NEGATIVE); UROBILINOGEN,URINE NORMAL (NORMAL)
[2018-05-25 15:26] LABS: APPEARANCE,URINE CLEAR (CLEAR); COLOR,URINE YELLOW (YELLOW)
[2018-05-25 15:36] LABS: AMORPHOUS SEDIMENT,UR TRACE /HPF (NEGATIVE); BACTERIA,URINE NEGATIVE /HPF (NEGATIVE); RBC,URINE 0-2 /HPF (NONE SEEN); SQUAMOUS EPITHELIAL CELL,UR FEW /HPF (NEGATIVE)
[2018-05-25 15:38] LABS: CKMB % 1.3 % (<4)
[2018-05-25 15:44] LABS: CREATINE KINASE MB 5.3 ng/mL (0-4.0)
[2018-05-25] MEDS ORDERED: HumuLIN R SUBCUT PRN (17:22)
[2018-05-25] MEDS: NS 1000 ML 1,000 ML IV SCH (18:13)
[2018-05-25 18:45] VITALS: BMI 34.6
[2018-05-25 21:02] LABS: CKMB % 1.4 % (<4); CREATINE KINASE 405 Units/L (26-192); TROPONIN I < 0.02 ng/mL (0-1.5)
[2018-05-25 21:03] LABS: CREATINE KINASE MB 5.6 ng/mL (0-4.0)
[2018-05-26] MEDS: NS 1000 ML 1,000 ML IV SCH ×4 (00:09→19:59)
[2018-05-26 04:39] LABS: EOSINOPHILS # (AUTO) 0.2 x10^3/uL (0.0-0.2); EOSINOPHILS % (AUTO) 3.8 % (0.9-2.9); HEMATOCRIT 33.7 % (36.0-47.0); HEMOGLOBIN 11.4 g/dL (12.0-16.0); LYMPHOCYTES # (AUTO) 1.9 X10^3/uL (1.3-2.9); LYMPHOCYTES % (AUTO) 38.4 % (21.0-51.0); MEAN CORPUSCULAR HEMOGLOBIN 28.7 pg (27.0-34.0); MEAN CORPUSCULAR VOLUME 84.5 fL (80.0-100.0); MEAN PLATELET VOLUME 7.9 fL (7.4-11.0); MONOCYTES # (AUTO) 0.4 x10^3/uL (0.3-0.8); MONOCYTES % (AUTO) 8.2 % (0.0-13.0); NEUTROPHILS # (AUTO) 2.4 x10^3/uL (2.2-4.8); NEUTROPHILS % (AUTO) 48.6 % (42.0-75.0); PLATELET COUNT 125 X10^3/uL (150.0-450.0); RED BLOOD COUNT 3.98 X10^6/uL (3.5-5.4); RED CELL DISTRIBUTION WIDTH 15.6 % (11.6-16.5)
[2018-05-26 05:00] LABS: ALBUMIN 2.7 g/dL (3.4-5.0); CALCIUM 7.8 mg/dL (8.5-10.1); CARBON DIOXIDE 24.5 mmol/L (21-32); CKMB % 1.4 % (<4); COR CA(FOR HYPOALB) 8.8 mg/dL (8.5-10.1); CREATINE KINASE 295 Units/L (26-192); CREATININE 1.78 mg/dL (0.55-1.02); TROPONIN I < 0.02 ng/mL (0-1.5)
[2018-05-26] MEDS ORDERED: POTASSIUM CHL 40 MEQ/NS 0.45% 500 ML IV PRN (06:57)
[2018-05-26] MEDS ORDERED: MAGNESIUM SULFATE 1 GRAM/100 mL PREMIX 1 GM/100 ML BAG IV PRN (06:57)
[2018-05-26] MEDS ORDERED: POTASSIUM CHL 60 MEQ/NS 0.45% 500 ML IV PRN (06:57)
[2018-05-26] MEDS ORDERED: POTASSIUM CHLORIDE LIQ 20 MEQ UDC PO PRN (06:57)
[2018-05-26] MEDS ORDERED: K-RIDER 10 MEQ/NS 100 ML 10 MEQ/100 ML BAG IV PRN (06:57)
[2018-05-26] MEDS: K-LYTE EFFERVESCENT PO PRN (07:55)
--- NOTE | 2018-05-26 10:01 | DR.H&P ---
H&P - History & Physical for Day of: H&P Date: 05/25/18 - Chief Complaint Chief Complaint: falls, dizziness, weakness - History of Present Illness History of Present Illness: IS A 67 YEAR OLD PATIENT OF OURS WHO PRESENTED TO THE EMERGENCY ROOM VIA EMS WITH COMPLAINTS OF GENERALIZED WEAKNESS, FREQUENT FALLS, AND SHORTNESS OF BREATH. FAMILY REPORTS THAT PATIENT HAS ALSO BEEN COMPLAINING OF DIZZINESS. PATIENTS FAMILY REPORTS THAT SYMPTOMS STARTED APPROXIMATELY ONE WEEK AGO. SHE HAS FALLEN AT HOME MULTIPLE TIMES, BUT DENIES HEAD TRAUMA OR LOSS OF CONSCIOUSNESS. THEY REPORT THAT SHE HAS HAD LOWER BACK AND LEFT FOOT PAIN WELL SWELLING TO BILATERAL LEGS AND FEET. ON ARRIVAL TO THE EMERGENCY ROOM, PATIENT WAS NOTED TO BE LETHARGIC WITH VITALS FOLLOWS : 98.9-78-17-94%-89/45. LABS WERE OBTAINED AND REVEALED THE FOLLOWING ABNORMAL VALUES: HGB 11.4, HCT 33.2, PLT COUNT 131, CHLORIDE 108, BUN 53, CREATININE 2.25 , CALCIUM 5.3 8.4, CREATINE KINASE 401, CK-MB 5.3, TOTAL PROTEIN 6.3, ALBUMIN 3.0. URINALYSIS IS UNRAMARKABLE. CHEST XRAY OBTAINED AND REVEALS NO ACUTE CARDIOPULMONARY DISEASE. LEFT FOOT XRAY REVEALS NO FRACTURE. MARKED SOFT TISSUE SWELLING OVER THE DORSUM OF THE FOOT SUGGESTING HEMATOMA. SHE WAS GIVEN A NORMAL SALINE BOLUS AND NARCAN 0.4MG IV X 1 DOSE. AFTER RECEIVING NARCAN, PATIENT BECAME MORE ALERT AND ADMITTED TO TAKING SEVERAL OF HER PAIN MEDICATIONS AT HOME IN ATTEMPT TO EASE PAIN. BLOOD PRESSURE REMAINED LOW. SHE WAS GIVEN ANOTHER BOLUS OF NORMAL SALINE. BLOOD PRESSURE WAS NOTED TO INCREASE 122/61. SHE WAS ADMITTED FOR FURTHER EVALUATION AND TREATMENT OF PERSISTENT HYPOTENSION, AMS, GENERALIZED WEAKNESS, AND OVERDOSE. SHE WAS STARTED ON NORMAL SALINE AT 80ML/HR. WE PLAN TO FOLLOW UP WITH AM LABS AND CONTINUE TO MONITOR PATIENT. - Past Medical History Past Medical History: CHF, Coronary Artery Disease, Diabetes, Hypertension, Hyperthyroidism, Hypothyroidism Additional Medical History: Cataracts, Hx Breast Ca - Past Surgical History Surgical History: Appendectomy, Cholecystectomy, Hysterectomy - Family History Family Medical History: Diabetes Mellitus, Cancer, [place], Hypertension - Social History Does patient currently use any type of tobacco product: No Have you used tobacco products in the last 12 months: No Type of Tobacco Use: Cigarettes How many years tobacco product used: 14 Does any household member use tobacco: No Alcohol Use: Occasionally Drug Use: None - Medications Home Medications: No Known Drug Allergies Allergy (Verified 05/25/18 13:47) CONTINUE taking the following medications aspirin 1 tab PO DAILY 05/25/18 [History] budesonide-formoterol [Symbicort] 1 each INHALATION PRN PRN 05/25/18 [History] carisoprodol 1 tab PO BID PRN 05/25/18 [History] diphenoxylate-atropine 2 tab PO QID 05/25/18 [History] ipratropium-albuterol [Combivent Respimat] 1 each INHALATION PRN PRN 05/25/18 [ History] losartan 1 tab PO DAILY 05/25/18 [History] oxycodone-acetaminophen 1 tab PO Q6H PRN 05/25/18 [History] potassium 1 tab PO DAILY 05/25/18 [History] - Review of Systems Constitutional: Weakness, Malaise Eyes: No Symptoms Reported ENT: No Symptoms Reported Respiratory: No Symptoms Reported Cardiovascular: Light Headedness Genitourinary: No Symptoms Reported Musculoskeletal: Back Pain, Leg Pain, Foot Pain Skin: Bruising Neurological: See HPI, Weakness, Confusion - Physical Exam Vital Signs: Temperature 98.5 F Pulse Rate [Apical] 74 Pulse Rate 78 Respiratory Rate 17 Blood Pressure [Left Calf] 114/73 Blood Pressure [Right Arm] 132/60 Blood Pressure 89/45 O2 Sat by Pulse Oximetry 97 Oriented: Not Oriented Eyes: Normal Ear: Normal Nose: Normal Throat: Normal Respiratory: Diminished Throughout Cardiovascular: negative: S3, S4, Edema : Normal Auscultation: Bowel Sounds: Normal Palpation: Normal Tenderness: Normal Skin: Normal Musculoskeletal: Left, Foot, Back:Lumbar, Swelling, Tender Psychiatric: Other (LETHARGIC ) Mood Description: Calm Affect: Flat Speech Pattern: Clear - Assessment/Plan (1) Hypotension Qualifiers: Hypotension type: unspecified hypotension type Qualified Code(s): I95.9 - Hypotension, unspecified Status: Acute Plan: NORMAL SALINE AT 100ML/HR, MONITOR NIBP, CONTINUE TO MONITOR (2) Rhabdomyolysis Qualifiers: Rhabdomyolysis type: non-traumatic Qualified Code(s): M62.82 - Rhabdomyolysis Status: Acute Plan: NORMAL SALINE AT 80ML/HR, CONTINUE TO MONITOR (3) Weakness generalized Status: Acute (4) Altered mental status Qualifiers: Altered mental status type: unspecified Qualified Code(s): R41.82 - Altered mental status, unspecified Status: Acute - Allergies Allergies/Adverse Reactions: Allergies Allergy/AdvReac Type Severity Reaction Status Date / Time No Known Drug Allergies Allergy Verified 05/25/18 13:47
[2018-05-26] MEDS ORDERED: IPRATROPIUM ALBUTEROL IN PRN (11:09)
[2018-05-26] MEDS ORDERED: BUDESONIDE FORMOTEROL IN PRN (11:09)
[2018-05-26] MEDS ORDERED: THEOPHYLLINE 300 MG PO SCH (11:15)
[2018-05-26] MEDS ORDERED: SYNTHROID 100 mcg TAB PO SCH (12:00)
[2018-05-26] MEDS ORDERED: THEO-DUR TAB 300 MG PO ONE (12:55)
[2018-05-26] MEDS: PLAVIX PO SCH (13:06)
[2018-05-26] MEDS: ASPIRIN PO SCH (13:06)
[2018-05-26] MEDS: ATARAX TAB 25 MG PO SCH ×3 (13:10→20:00)
[2018-05-26] MEDS ORDERED: BUTT CREAM (COMPOUND) ONE (14:53)
[2018-05-26] MEDS ORDERED: BUTT CREAM (COMPOUND) TOP PRN (15:01)
[2018-05-26] MEDS: DUONEB 0.5 MG/3 MG NEB SCH ×2 (17:00→21:00)
[2018-05-26] MEDS ORDERED: PROVENTIL NEB TX 0.083% 2.5MG/ 3ML NEB PRN ×2 (18:44→19:00)
[2018-05-26] MEDS ORDERED: PULMICORT NEB TX 0.5 MG NEB PRN (18:45)
[2018-05-26] MEDS: PERCOCET TAB 5/325 MG PO PRN (20:00)
[2018-05-26] MEDS ORDERED: LIPITOR TAB 40 MG PO SCH (21:00)
[2018-05-27] MEDS: PERCOCET TAB 5/325 MG PO PRN (05:33)
[2018-05-27 06:16] LABS: BASOPHILS % (AUTO) 0.4 % (0.2-1.0); EOSINOPHILS # (AUTO) 0.2 x10^3/uL (0.0-0.2); EOSINOPHILS % (AUTO) 3.5 % (0.9-2.9); HEMATOCRIT 32.7 % (36.0-47.0); HEMOGLOBIN 11.2 g/dL (12.0-16.0); LYMPHOCYTES # (AUTO) 1.7 X10^3/uL (1.3-2.9); LYMPHOCYTES % (AUTO) 38.1 % (21.0-51.0); MEAN CORPUSCULAR HEMOGLOBIN 28.5 pg (27.0-34.0); MEAN CORPUSCULAR HGB CONC 34.3 g/dL (33.0-35.0); MEAN CORPUSCULAR VOLUME 83.1 fL (80.0-100.0); MONOCYTES # (AUTO) 0.4 x10^3/uL (0.3-0.8); MONOCYTES % (AUTO) 8.9 % (0.0-13.0); NEUTROPHILS # (AUTO) 2.2 x10^3/uL (2.2-4.8); NEUTROPHILS % (AUTO) 49.1 % (42.0-75.0); PLATELET COUNT 124 X10^3/uL (150.0-450.0); RED BLOOD COUNT 3.93 X10^6/uL (3.5-5.4); RED CELL DISTRIBUTION WIDTH 15.4 % (11.6-16.5); WHITE BLOOD COUNT 4.5 X10^3/uL (3.6-10.0)
[2018-05-27 06:21] LABS: ALANINE AMINOTRANSFERASE 41 Units/L (12-78); ALBUMIN 2.6 g/dL (3.4-5.0); ALKALINE PHOSPHATASE 73 Units/L (46-116); ASPARTATE AMINO TRANSFERASE 20 Units/L (15-37); BLOOD UREA NITROGEN 23 mg/dL (7-18); CALCIUM 7.7 mg/dL (8.5-10.1); CARBON DIOXIDE 26.1 mmol/L (21-32); COR CA(FOR HYPOALB) 8.8 mg/dL (8.5-10.1); COR NA(FOR HYPERGLY) 147 mmol/L (136-145); CREATININE 1.09 mg/dL (0.55-1.02); SODIUM 147 mmol/L (136-145); TOTAL PROTEIN 5.8 g/dL (6.4-8.2); eGFR NON BLACK RACES 53 (>60)
[2018-05-27 06:31] LABS: CHLORIDE 115 mmol/L (98-107)
[2018-05-27] MEDS: K-LYTE EFFERVESCENT PO PRN (06:45)
[2018-05-27] MEDS ORDERED: DUONEB 0.5 MG/3 MG NEB PRN (06:58)
[2018-05-27] MEDS ORDERED: SYNTHROID 100 mcg TAB PO SCH (07:30)
[2018-05-27] MEDS: ASPIRIN PO SCH (08:41)
[2018-05-27] MEDS: ATARAX TAB 25 MG PO SCH (08:41)
[2018-05-27] MEDS: PLAVIX PO SCH (08:42)
[2018-05-27] MEDS ORDERED: THEO-DUR TAB 300 MG PO SCH (09:00)
[2018-05-27] MEDS: NS 1000 ML 1,000 ML IV SCH ×2 (09:01→09:20)
[2018-05-27 12:09] VITALS: BP 141/60
--- NOTE | 2018-06-30 14:48 | PCM.PROG ---
Progress Note - Progress Note for Day of Date of Exam: 05/26/18 - Subjective Subjective: WAS ADMITTED FOR WEAKNESS, HYPOTENSION, AMS, AND RHABDOMYLYSIS. TODAY, SHE IS ALERT AND ORIENTED, LYING IN BED ON MORNING ROUNDS. SHE CONTINUES WITH COMPLAINTS OF WEAKNESS AND LEG PAIN. SHE ALSO REPORTS SHORTNESS OF BREATH. ON EXAMINATION, HEART IS REGULAR IN RATE AND RHYTHM. BILATERAL LUNGS ARE NOTED WITH DIMINISHED LUNG SOUNDS THROUGHOUT. ABDOMEN IS ROUND, SOFT, AND NON-TENDER WITH NORMAL BOWEL SOUNDS NOTED IN ALL QUADRANTS. HER VITALS THIS MORNING ARE 98.5-74-17-97%-132/60. LABS WERE OBTAINED. ABNORMAL LAB VALUES INCLUDE THE FOLLOWING: HGB 11.4, HCT 33.7, CHLORIDE 112, BUN 46, CREATININE 1.78, GLUCOSE 151, CALCIUM 7.8, TOTAL BILI 0.10 , TOTAL PROTEIN 6.0, ALBUMIN 2.7. CREATINE KINSASE HAS DECREASED FROM 405 TO 295 THIS MORNING. TODAY, WE WILL CONTINUE WITH CURRENT PLAN OF CARE. WE PLAN TO OBTAIN AN ECHOCARDIOGRAM. OTHERWISE, WE WILL FOLLOW UP WITH AM LABS AND CONTINUE TO MONITOR PATIENT. - Past Medical Family Social History Past Med/Fam/Surg Hx: No changes since H&P Allergies: Allergies No Known Drug Allergies Allergy (Verified 05/25/18 13:47) - Review of Systems ROS: No change since H&P - Vital Signs and I&O's Vital Signs: Temperature 97.2 F Pulse Rate [Apical] 64 Pulse Rate 78 Respiratory Rate 20 Blood Pressure [Left Calf] 114/73 Blood Pressure [Right Arm] 141/60 Blood Pressure 89/45 O2 Sat by Pulse Oximetry 97 - Physical Exam Oriented: Normal Eyes: Normal Ear: Normal Nose: Normal Throat: Normal Cardiovascular: Normal. negative: S3, S4, Edema : Normal Auscultation: Bowel Sounds: Normal Palpation: Normal Tenderness: Normal Skin: Normal Musculoskeletal: Left, Foot, Back:Lumbar, Swelling, Tender Psychiatric: Other (LETHARGIC ) Mood Description: Calm Affect: Flat Speech Pattern: Clear, Appropriate - Laboratory and Diagnostics Result Diagrams: 05/27/18 05:20 05/27/18 05:20 Labs: Laboratory WBC 4.5 X10^3/uL (3.6-10.0) 05/27/18 05:20 RBC 3.93 X10^6/uL (3.5-5.4) 05/27/18 05:20 Hgb 11.2 g/dL (12.0-16.0) L 05/27/18 05:20 Hct 32.7 % (36.0-47.0) L 05/27/18 05:20 MCV 83.1 fL (80.0-100.0) 05/27/18 05:20 MCH 28.5 pg (27.0-34.0) 05/27/18 05:20 MCHC 34.3 g/dL (33.0-35.0) 05/27/18 05:20 RDW 15.4 % (11.6-16.5) 05/27/18 05:20 Plt Count 124 X10^3/uL (150.0-450.0) L 05/27/18 05:20 MPV 8.0 fL (7.4-11.0) 05/27/18 05:20 Neut % (Auto) 49.1 % (42.0-75.0) 05/27/18 05:20 Lymph % (Auto) 38.1 % (21.0-51.0) 05/27/18 05:20 [place] % (Auto) 8.9 % (0.0-13.0) 05/27/18 05:20 Eos % (Auto) 3.5 % (0.9-2.9) H 05/27/18 05:20 Baso % (Auto) 0.4 % (0.2-1.0) 05/27/18 05:20 Neut # (Auto) 2.2 x10^3/uL (2.2-4.8) 05/27/18 05:20 Lymph # (Auto) 1.7 X10^3/uL (1.3-2.9) 05/27/18 05:20 [place] # (Auto) 0.4 x10^3/uL (0.3-0.8) 05/27/18 05:20 Eos # (Auto) 0.2 x10^3/uL (0.0-0.2) 05/27/18 05:20 Baso # (Auto) 0.0 X10^3/uL (0.0-0.1) 05/27/18 05:20 Absolute Nucleated RBC 0.3 /100WBC 05/27/18 05:20 INR Target Range - 05/25/18 14:23 INR 0.99 (0.8-1.3) 05/25/18 14:23 APTT 29.5 SECONDS (22.9-36.5) 05/25/18 14:23 PTT Comment - 05/25/18 14:23 Sodium 147 mmol/L (136-145) H 05/27/18 05:20 Corrected Sodium 147 mmol/L (136-145) H 05/27/18 05:20 Potassium 3.5 mmol/L (3.5-5.1) 05/27/18 05:20 Chloride 115 mmol/L (98-107) H* 05/27/18 05:20 Carbon Dioxide 26.1 mmol/L (21-32) 05/27/18 05:20 BUN 23 mg/dL (7-18) H 05/27/18 05:20 Creatinine 1.09 mg/dL (0.55-1.02) H 05/27/18 05:20 Est GFR (MDRD) Af Amer > 60 (>60) 05/27/18 05:20 Est GFR (MDRD) Non-Af 53 (>60) L 05/27/18 05:20 Glucose 111 mg/dL (65-99) H 05/27/18 05:20 POC Glucose (mg/dL) 142 mg/dL (65-99) H 05/27/18 11:24 Calcium 7.7 mg/dL (8.5-10.1) L 05/27/18 05:20 Corrected Calcium 8.8 mg/dL (8.5-10.1) 05/27/18 05:20 Magnesium 2.0 mg/dL (1.7-2.9) 05/26/18 05:20 Total Bilirubin 0.20 mg/dL (0.2-1.0) 05/27/18 05:20 AST 20 Units/L (15-37) 05/27/18 05:20 ALT 41 Units/L (12-78) 05/27/18 05:20 Alkaline Phosphatase 73 Units/L (46-116) 05/27/18 05:20 Creatine Kinase 295 Units/L (26-192) H 05/26/18 04:30 CK-MB (CK-2) 4.0 ng/mL (0-4.0) 05/26/18 04:30 CK/CKMB % Calc 1.4 % (<4) 05/26/18 04:30 Troponin I < 0.02 ng/mL (0-1.5) 05/26/18 04:30 B-Natriuretic Peptide 38.5 pg/mL (0-79) 05/25/18 14:23 Total Protein 5.8 g/dL (6.4-8.2) L 05/27/18 05:20 Albumin 2.6 g/dL (3.4-5.0) L 05/27/18 05:20 Globulin 3.2 g/dL (2.5-4.5) 05/27/18 05:20 Albumin/Globulin Ratio 0.8 Ratio (1.1-2.1) L 05/27/18 05:20 Specimen Type Catherized urine 05/25/18 14:40 Urine Color Yellow (YELLOW) 05/25/18 14:40 Urine Appearance Clear (CLEAR) 05/25/18 14:40 Urine pH 5.0 (5.0 - 8.0) 05/25/18 14:40 Ur Specific [place] 1.015 (1.000-1.030) 05/25/18 14:40 Urine Protein Negative (NEGATIVE) 05/25/18 14:40 Urine Glucose (UA) Negative (NEGATIVE) 05/25/18 14:40 Urine Ketones Negative (NEGATIVE) 05/25/18 14:40 Urine Occult Blood 2+ (NEGATIVE) 05/25/18 14:40 Urine Nitrite Negative (NEGATIVE) 05/25/18 14:40 Urine Bilirubin Negative (NEGATIVE) 05/25/18 14:40 Urine Urobilinogen Normal (NORMAL) 05/25/18 14:40 Ur Leukocyte Esterase Negative (NEGATIVE) 05/25/18 14:40 Urine RBC 0-2 /HPF (NONE SEEN) 05/25/18 14:40 Urine WBC None seen /HPF (NONE SEEN) 05/25/18 14:40 Ur Squamous Epith Cells Few /HPF (NEGATIVE) 05/25/18 14:40 Amorphous Sediment Trace /HPF (NEGATIVE) 05/25/18 14:40 Urine Bacteria Negative /HPF (NEGATIVE) 05/25/18 14:40 Ur Culture Indicated? No/not indicated 05/25/18 14:40 - Plan (1) Hypotension Status: Acute Qualifiers: Hypotension type: unspecified hypotension type Qualified Code(s): I95.9 - Hypotension, unspecified Plan: NORMAL SALINE AT 100ML/HR, MONITOR NIBP, CONTINUE TO MONITOR (2) Rhabdomyolysis Status: Acute Qualifiers: Rhabdomyolysis type: non-traumatic Qualified Code(s): M62.82 - Rhabdomyolysis Plan: NORMAL SALINE AT 80ML/HR, CONTINUE TO MONITOR (3) Weakness generalized Status: Acute (4) CHF (congestive heart failure) Status: Chronic Qualifiers: Heart failure chronicity: acute on chronic Plan: OBTAIN ECHO, CONTINUE TO MONITOR (5) Altered mental status Status: Acute Qualifiers: Altered mental status type: unspecified Qualified Code(s): R41.82 - Altered mental status, unspecified
--- NOTE | 2018-07-08 22:08 | DR.CARTERD ---
- Discharge Summary for: Discharge Summary for Date of:: 05/27/18 - Admission Date Date of Admission: 05/25/18 - Admission Diagnoses Admission Diagnosis: (1) Rhabdomyolysis (2) Hypotension (3) Dehydration (4) Weakness generalized (5) Altered mental status - Discharge Date Discharge Date: 05/27/18 - Discharge Diagnoses Discharge Diagnosis: (1) Rhabdomyolysis (2) Hypotension (3) Dehydration (4) Weakness generalized (5) Altered mental status - Hospital Course Hospital Course: DAY ONE, MS. MAI IS A 67 YEAR OLD PATIENT OF OURS WHO PRESENTED TO THE EMERGENCY ROOM VIA EMS WITH COMPLAINTS OF GENERALIZED WEAKNESS, FREQUENT FALLS, AND SHORTNESS OF BREATH. FAMILY REPORTED THAT PATIENT HAD ALSO BEEN COMPLAINING OF DIZZINESS. PATIENTS FAMILY REPORTED THAT SYMPTOMS STARTED APPROXIMATELY ONE WEEK PRIOR. SHE HAD FALLEN AT HOME MULTIPLE TIMES, BUT DENIED HEAD TRAUMA OR LOSS OF CONSCIOUSNESS. THEY REPORTED THAT SHE HAD LOWER BACK AND LEFT FOOT PAIN WELL SWELLING TO BILATERAL LEGS AND FEET. ON ARRIVAL TO THE EMERGENCY ROOM , PATIENT WAS NOTED TO BE LETHARGIC WITH VITALS FOLLOWS: 98.9-78-17-94%-89/ 45. LABS WERE OBTAINED AND REVEALED THE FOLLOWING ABNORMAL VALUES: HGB 11.4, HCT 33.2, PLT COUNT 131, CHLORIDE 108, BUN 53, CREATININE 2.25, CALCIUM 5.3 8.4 , CREATINE KINASE 401, CK-MB 5.3, TOTAL PROTEIN 6.3, ALBUMIN 3.0. URINALYSIS WAS UNRAMARKABLE. CHEST XRAY OBTAINED AND REVEALED NO ACUTE CARDIOPULMONARY DISEASE. LEFT FOOT XRAY REVEALED NO FRACTURE. MARKED SOFT TISSUE SWELLING OVER THE DORSUM OF THE FOOT SUGGESTING HEMATOMA. SHE WAS GIVEN A NORMAL SALINE BOLUS AND NARCAN 0.4MG IV X 1 DOSE. AFTER RECEIVING NARCAN, PATIENT BECAME MORE ALERT AND ADMITTED TO TAKING SEVERAL OF HER PAIN MEDICATIONS AT HOME IN ATTEMPT TO EASE PAIN. BLOOD PRESSURE REMAINED LOW. SHE WAS GIVEN ANOTHER BOLUS OF NORMAL SALINE. BLOOD PRESSURE WAS NOTED TO INCREASE 122/61. SHE WAS ADMITTED FOR FURTHER EVALUATION AND TREATMENT OF PERSISTENT HYPOTENSION, AMS, GENERALIZED WEAKNESS, AND OVERDOSE. SHE WAS STARTED ON NORMAL SALINE AT 80ML/HR. WE CONTINUED TO MONITOR PATIENT. DAY TWO, MS. MAI WAS ADMITTED FOR WEAKNESS, HYPOTENSION, AMS, AND RHABDOMYLYSIS. SHE WAS ALERT AND ORIENTED, LYING IN BED ON MORNING ROUNDS. SHE CONTINUED WITH COMPLAINTS OF WEAKNESS AND LEG PAIN. SHE ALSO REPORTED SHORTNESS OF BREATH. ON EXAMINATION, HEART WAS REGULAR IN RATE AND RHYTHM. BILATERAL LUNGS WERE NOTED WITH DIMINISHED LUNG SOUNDS THROUGHOUT. ABDOMEN WAS ROUND, SOFT , AND NON-TENDER WITH NORMAL BOWEL SOUNDS NOTED IN ALL QUADRANTS. HER VITALS WERE 98.5-74-17-97%-132/60. LABS WERE OBTAINED. ABNORMAL LAB VALUES INCLUDED THE FOLLOWING: HGB 11.4, HCT 33.7, CHLORIDE 112, BUN 46, CREATININE 1.78, GLUCOSE 151, CALCIUM 7.8, TOTAL BILI 0.10, TOTAL PROTEIN 6.0, ALBUMIN 2.7. CREATINE KINSASE HAD DECREASED FROM 405 TO 295. WE CONTINUED TO MONITOR PATIENT. DAY THREE, PATIENT REPORTED SHE FELT BETTER. SHE WAS ALERT AND ORIENTED. SHE DENIED SHORTNESS OF BREATH, DIZZINESS, OR PAIN. NO ACUTE DISTRESS WAS NOTED. VITAL SIGNS STABLE. LABS WNL. WE PLANNED FOR DISCHARGE. INSTRUCTIONS FOR MEDICATIONS AND FOLLOW UP WERE DISCUSSED WITH PATIENT AND FAMILY, BOTH VOICED UNDERSTANDING. PATIENT DISCHARGED HOME IN STABLE CONDITION WITH FAMILY. - Discharge Medications Discharge Medications: Home Medication List aspirin 1 tab PO DAILY 05/25/18 [History] budesonide-formoterol 1 each INHALATION PRN PRN 05/25/18 [History] carisoprodol 1 tab PO BID PRN 05/25/18 [History] diphenoxylate-atropine 2 tab PO QID 05/25/18 [History] ipratropium-albuterol 1 each INHALATION PRN PRN 05/25/18 [History] oxycodone-acetaminophen 1 tab PO Q6H PRN 05/25/18 [History] potassium 1 tab PO DAILY 05/25/18 [History] Prescriptions: Home medications atorvastatin 40 mg PO HS 10/18/13 clopidogrel [Plavix] 1 tab PO DAILY 11/08/14 glipizide 10 mg PO BID 11/10/14 hydroxyzine HCl 25 mg PO QID 11/10/14 Pregabalin [Lyrica] 1 cap PO BID 04/26/17 Theophylline [Tad-24] 300 mg PO DAILY 04/26/17 furosemide 1 tab PO BID 04/26/17 levothyroxine 1 tab PO DAILY 04/26/17 - Discharge Disposition Discharge Disposition: PATIENT IS TO FOLLOW UP IN OUR OFFICE IN ONE WEEK.
== END 2018-05-27 12:55 | disposition home or self-care (01) ==
LOC: ICU 13:36 → ER 13:36 → ICU 17:53
PROVIDERS: ADMIT Internal Medicine; ATTEND Internal Medicine
DX: R42 Dizziness and giddiness; R26.89 Other abnormalities of gait and mobility; R41.82 Altered mental status, unspecified; M62.82 Rhabdomyolysis; R60.0 Localized edema; M79.673 Pain in unspecified foot; T65.891A Toxic effect of other specified substances, accidental (unintentional), initial encounter; E78.2 Mixed hyperlipidemia; X58.XXXA Exposure to other specified factors, initial encounter; E11.65 Type 2 diabetes mellitus with hyperglycemia; R06.02 Shortness of breath; R07.89 Other chest pain; N18.9 Chronic kidney disease, unspecified; I25.10 Atherosclerotic heart disease of native coronary artery without angina pectoris; R29.6 Repeated falls; I95.89 Other hypotension; M54.5 Low back pain
CPT/HCPCS: 36415; 51702; 71010; 71045; 73630; 80053; 81001; 82550; 82553; 83735; 83880; 84484; 85025; 85610; 85730; 93005; 96365; 96367; 96374; 97167; 99284; A4216; A4222; G0378; J1815; J2310; J7030; J8499

== ENCOUNTER 2018-09-25 12:23 | Observation (INO) ==
[2018-09-25 12:36] VITALS: BMI 32.5
[2018-09-25 13:01] LABS: BASOPHILS % (AUTO) 0.5 % (0.2-1.0); EOSINOPHILS # (AUTO) 0.2 x10^3/uL (0.0-0.2); EOSINOPHILS % (AUTO) 2.9 % (0.9-2.9); LYMPHOCYTES # (AUTO) 1.5 X10^3/uL (1.3-2.9); LYMPHOCYTES % (AUTO) 25.1 % (21.0-51.0); MEAN CORPUSCULAR HEMOGLOBIN 28.2 pg (27.0-34.0); MEAN CORPUSCULAR HGB CONC 33.3 g/dL (33.0-35.0); MEAN CORPUSCULAR VOLUME 84.6 fL (80.0-100.0); MONOCYTES # (AUTO) 0.5 x10^3/uL (0.3-0.8); MONOCYTES % (AUTO) 8.7 % (0.0-13.0); NEUTROPHILS # (AUTO) 3.7 x10^3/uL (2.2-4.8); NEUTROPHILS % (AUTO) 62.8 % (42.0-75.0); PLATELET COUNT 136 X10^3/uL (150.0-450.0); RED BLOOD COUNT 4.96 X10^6/uL (3.5-5.4); RED CELL DISTRIBUTION WIDTH 14.9 % (11.6-16.5); WHITE BLOOD COUNT 5.8 X10^3/uL (3.6-10.0)
[2018-09-25 13:18] LABS: BLOOD UREA NITROGEN 45 mg/dL (7-18); CALCIUM 8.9 mg/dL (8.5-10.1); CARBON DIOXIDE 25.1 mmol/L (21-32); CHLORIDE 107 mmol/L (98-107); COR NA(FOR HYPERGLY) 146 mmol/L (136-145); CREATININE 1.42 mg/dL (0.55-1.02); SODIUM 143 mmol/L (136-145); TROPONIN I < 0.02 ng/mL (0-1.5); eGFR NON BLACK RACES 39 (>60)
--- NOTE | 2018-09-25 13:21 | DR.CP ---
HPI Time Seen Time Seen by Provider: 09/25/18 13:20 PCP Primary Care Physician: carmine HPI Comment HPI Comment: PAIN GETTING WORSE. EMS GAVE 324MG ASA DURING TRANSPORT. Complaint Chief Complaint Doctor Comments: CHEST PAIN, SOB TIMES FEW HOURS. Chief Complaint:: pt stated she was having chest pain with short of breath at home with her home health care nurse. she called her doctor and was told to send patient to the er. Self Treatment fo Chief Complaint: ems gave asa 324 mg po, ems stated she gave herself a breathing tx prior to there arrival. Reviewed Nurses Notes Review: Yes Source History Provided: Patient Mode of Arrival Mode of Arrival: EMS Timing Onset of Chief Complaint: 09/25/18 Came on: Suddenly Pain: Present Now Duration Duration: Constant Duration: Hours Location Location of Chest Pain: Left and Chest Chest Pain Radiation Location: Back Context Onset: At rest Cardiac Risk Factors: Hyperlipidemia, HTN and Diabetes PE Risk Factors: None History of: None Prehospital Care: ASA (DURING TRANSPORT.) Quality Quality: Pressure like Severity Severity: Moderate Modifying Factors Worsens: Breathing Impoves: Nothing Associated Signs and Symptoms Associated Signs and Symptoms: Shortness of Breath PMH PMH Past Medical History: Yes Past Medical History: CHF, Coronary Artery Disease, Diabetes, Hypertension, Hyperthyroidism and Hypothyroidism Past Surgical History: Yes Surgical History: Appendectomy, Cholecystectomy and Hysterectomy Family History History of Family Medical Conditions: Yes Family Medical History: Diabetes Mellitus, Cancer, [place] and Hypertension Social History Does patient currently use any type of tobacco product: No Have you used tobacco products in the last 12 months: No Type of Tobacco Use: None Does any household member use tobacco: No Alcohol Use: None Do you use any recreational Drugs:: No Lives With: Alone Lives Where: Home infectious screening In the last 2 months have you had wt loss of >10#?: NO Have you had fever, night sweats or hemotysis?: No Have you traveled outside the country in the last 6 months?: No Isolation: Standard ROS Review of Systems Constitutional: Weakness and Fatigue Eyes: No Symptoms Reported ENTM: No Symptoms Reported Respiratoy: Short of Breath Cardiovascular: Chest Pain Gastrointestinal/Abdominal: No Symptoms Reported Genitourinary: No Symptoms Reported Neurological: Weakness Musculoskeletal: No Symptoms Reported Integumentary: No Symptoms Reported Hematologic/Lymphatic: No Symptoms Reported Endocrine: No Symptoms Reported Psychiatric: No Symptoms Reported All Other Systems: Reviewed and Negative PE Vitals Vitals: Temperature 97.6 F Pulse Rate [Right Radial] 62 Pulse Rate 66 Respiratory Rate 20 Blood Pressure [Left Calf] 168/75 Blood Pressure [Right Arm] 141/74 Blood Pressure 106/59 O2 Sat by Pulse Oximetry 97 General Limitations: No Limitations General Appearance: Alert and In No Apparent Distress Head Head Exam: Normal Inspection Eyes Eye exam: Normal Appearance ENT ENT Exam: Normal External Ear Exam Chest Chest Inspection: Normal Inspection and Symmetric Chest Wall Rise Respiratory Respiratory Exam: Normal Lung Sounds Bilat Respiratory Exam: Bilateral: Rhonchi and Lower: Rhonchi Cardiovascular Cardiovascular Exam: Regular Rate and Normal Rhythm Pulse: Normal Abdominal Exam Abdominal Exam: Normal Bowel Sounds and Soft; negative Tenderness Extremities Extremities Exam: Normal Capillary Refill Back Back Exam: Normal Inspection Neurologic Neurological Exam: Alert and Oriented X3; negative Motor Sensory Deficit Psychiatric Psychiatric Exam: Normal Affect and Normal Mood Skin Skin Exam: Erythema MDM Differential Diagnosis Differential Diagnosis: Angina, CHF, Costochondritis, Myocardial Infarction, Pericarditis, Pleuritis, Pneumonia and Pneumothorax COURSE Treatment Treatment: see orders Education/Counseling Education/Counseling: Patient Educated On: Diagnosis ROR Labs Reviewed Laboratory Results Reviewed?: Yes Result Diagrams: 09/27/18 05:43 09/27/18 05:43 Laboratory: WBC 3.9 X10^3/uL (3.6-10.0) 09/27/18 05:43 RBC 4.62 X10^6/uL (3.5-5.4) 09/27/18 05:43 Hgb 13.1 g/dL (12.0-16.0) 09/27/18 05:43 Hct 39.1 % (36.0-47.0) 09/27/18 05:43 MCV 84.6 fL (80.0-100.0) 09/27/18 05:43 MCH 28.3 pg (27.0-34.0) 09/27/18 05:43 MCHC 33.4 g/dL (33.0-35.0) 09/27/18 05:43 RDW 14.9 % (11.6-16.5) 09/27/18 05:43 Plt Count 133 X10^3/uL (150.0-450.0) L 09/27/18 05:43 MPV 7.8 fL (7.4-11.0) 09/27/18 05:43 Neut % (Auto) 52.6 % (42.0-75.0) 09/27/18 05:43 Lymph % (Auto) 32.6 % (21.0-51.0) 09/27/18 05:43 [place] % (Auto) 9.5 % (0.0-13.0) 09/27/18 05:43 Eos % (Auto) 4.7 % (0.9-2.9) H 09/27/18 05:43 Baso % (Auto) 0.6 % (0.2-1.0) 09/27/18 05:43 Neut # (Auto) 2.1 x10^3/uL (2.2-4.8) L 09/27/18 05:43 Lymph # (Auto) 1.3 X10^3/uL (1.3-2.9) 09/27/18 05:43 [place] # (Auto) 0.4 x10^3/uL (0.3-0.8) 09/27/18 05:43 Eos # (Auto) 0.2 x10^3/uL (0.0-0.2) 09/27/18 05:43 Baso # (Auto) 0.0 X10^3/uL (0.0-0.1) 09/27/18 05:43 Absolute Nucleated RBC 0.0 /100WBC 09/27/18 05:43 INR Target Range - 09/25/18 12:52 INR 0.94 (0.8-1.3) 09/25/18 12:52 APTT 26.3 SECONDS (22.9-36.5) 09/25/18 12:52 PTT Comment - 09/25/18 12:52 D-Dimer 240 ng/mL (0-400) 09/25/18 12:52 Sodium 149 mmol/L (136-145) H 09/27/18 05:43 Corrected Sodium 151 mmol/L (136-145) H 09/27/18 05:43 Potassium 4.2 mmol/L (3.5-5.1) 09/27/18 05:43 Chloride 115 mmol/L (98-107) H* 09/27/18 05:43 Carbon Dioxide 22.1 mmol/L (21-32) 09/27/18 05:43 BUN 23 mg/dL (7-18) H 09/27/18 05:43 Creatinine 0.97 mg/dL (0.55-1.02) 09/27/18 05:43 Est GFR (MDRD) Af Amer > 60 (>60) 09/27/18 05:43 Est GFR (MDRD) Non-Af > 60 (>60) 09/27/18 05:43 Glucose 170 mg/dL (65-99) H 09/27/18 05:43 POC Glucose (mg/dL) 163 mg/dL (65-99) H 09/27/18 11:27 Calcium 8.2 mg/dL (8.5-10.1) L 09/27/18 05:43 Corrected Calcium 9.1 mg/dL (8.5-10.1) 09/27/18 05:43 Magnesium 2.3 mg/dL (1.7-2.9) 09/26/18 05:43 Total Bilirubin 0.10 mg/dL (0.2-1.0) L 09/27/18 05:43 AST 16 Units/L (15-37) 09/27/18 05:43 ALT 35 Units/L (12-78) 09/27/18 05:43 Alkaline Phosphatase 87 Units/L (46-116) 09/27/18 05:43 Creatine Kinase 136 Units/L (26-192) 09/26/18 01:27 CK-MB (CK-2) 2.4 ng/mL (0-4.0) 09/26/18 01:27 CK/CKMB % Calc 1.8 % (<4) 09/26/18 01:27 Troponin I < 0.02 ng/mL (0-1.5) 09/26/18 01:27 B-Natriuretic Peptide 7.9 pg/mL (0-79) 09/25/18 12:52 Total Protein 6.0 g/dL (6.4-8.2) L 09/27/18 05:43 Albumin 2.9 g/dL (3.4-5.0) L 09/27/18 05:43 Globulin 3.1 g/dL (2.5-4.5) 09/27/18 05:43 Albumin/Globulin Ratio 0.9 Ratio (1.1-2.1) L 09/27/18 05:43 Triglycerides 387 mg/dL (0-150) H 09/26/18 05:43 Cholesterol 202 mg/dL (0-200) H 09/26/18 05:43 LDL Cholesterol, Calc 91 mg/dL (0-100) 09/26/18 05:43 HDL Cholesterol 34 mg/dL (40-60) L 09/26/18 05:43 Cholesterol/HDL Ratio 5.9 (0.0-5.0) H 09/26/18 05:43 Specimen Type Random urine 09/25/18 18:55 Urine Color Yellow (YELLOW) 09/25/18 18:55 Urine Appearance Slightly hazy (CLEAR) 09/25/18 18:55 Urine pH 5.0 (5.0 - 8.0) 09/25/18 18:55 Ur Specific [place] 1.010 (1.000-1.030) 09/25/18 18:55 Urine Protein Negative (NEGATIVE) 09/25/18 18:55 Urine Glucose (UA) Negative (NEGATIVE) 09/25/18 18:55 Urine Ketones Negative (NEGATIVE) 09/25/18 18:55 Urine Occult Blood Negative (NEGATIVE) 09/25/18 18:55 Urine Nitrite Negative (NEGATIVE) 09/25/18 18:55 Urine Bilirubin Negative (NEGATIVE) 09/25/18 18:55 Urine Urobilinogen Normal (NORMAL) 09/25/18 18:55 Ur Leukocyte Esterase 2+ (NEGATIVE) 09/25/18 18:55 Urine RBC 0-2 /HPF (NONE SEEN) 09/25/18 18:55 Urine WBC 3-5 /HPF (NONE SEEN) 09/25/18 18:55 Ur Squamous Epith Cells Rare /HPF (NEGATIVE) 09/25/18 18:55 Urine Bacteria Trace /HPF (NEGATIVE) 09/25/18 18:55 Hyaline Casts Rare /LPF (NEGATIVE) 09/25/18 18:55 Ur Culture Indicated? No/not indicated 09/25/18 18:55 XRAY XRAY Interpreted by: Radiologist XRAY Findings: REPORT NOTED. EKG [place]: Normal Rhythm: NSR Instructions Instructions: Fall Prevention in the Home, [id number] Shortness of Breath, Adult, [id number] Nonspecific Chest Pain, [id number] Type 2 Diabetes Mellitus, Self Care, Adult, Hgvi-[id number] Hypertension, Ilgb-lc-[id number] Heart Failure, Osdr-gf-[id number] Forms: Patient Portal
[2018-09-25 13:23] LABS: ALANINE AMINOTRANSFERASE 34 Units/L (12-78); ALBUMIN 3.5 g/dL (3.4-5.0); ALKALINE PHOSPHATASE 99 Units/L (46-116); ASPARTATE AMINO TRANSFERASE 15 Units/L (15-37); CKMB % 1.5 % (<4); CREATINE KINASE 194 Units/L (26-192); CREATINE KINASE MB 2.9 ng/mL (0-4.0); MAGNESIUM 1.7 mg/dL (1.7-2.9); TOTAL PROTEIN 7.3 g/dL (6.4-8.2)
[2018-09-25 13:25] LABS: B-TYPE NATRIURETIC PEPTIDE 7.9 pg/mL (0-79)
--- NOTE | 2018-09-25 14:26 | RAD ---
HISTORY: Chest pain and shortness of breath. Study: Portable chest. Comparison: Chest x-ray dated May 25, 2018. Findings: The trachea is midline. The cardiac silhouette is unremarkable. Postsurgical changes status post median sternotomy. Chronic emphysematous changes. No obvious focal consolidation, pleural effusion, or pneumothorax. The bony thorax appears unchanged. Surgical clips overlying the left axilla. IMPRESSION: No acute cardiopulmonary disease. Reported By:
[2018-09-25] MEDS: NS 1000 ML 1,000 ML IV SCH (18:02)
[2018-09-25] MEDS ORDERED: POTASSIUM CHL 60 MEQ/NS 0.45% 500 ML IV PRN (19:25)
[2018-09-25] MEDS ORDERED: POTASSIUM CHL 40 MEQ/NS 0.45% 500 ML IV PRN (19:25)
[2018-09-25] MEDS ORDERED: POTASSIUM CHLORIDE LIQ 20 MEQ UDC PO PRN (19:25)
[2018-09-25] MEDS ORDERED: KLOR-CON PO PRN (19:25)
[2018-09-25] MEDS ORDERED: K-DUR TAB 20 MEQ PO PRN (19:25)
[2018-09-25] MEDS ORDERED: MICRO K EXTEN CAP 10 MEQ PO PRN (19:25)
[2018-09-25] MEDS ORDERED: K-RIDER 10 MEQ/NS 100 ML 10 MEQ/100 ML BAG IV PRN (19:25)
[2018-09-25 19:27] LABS: BILIRUBIN,URINE NEGATIVE (NEGATIVE); BLOOD/HEMOGLOBIN,URINE NEGATIVE (NEGATIVE); GLUCOSE, URINE NEGATIVE (NEGATIVE); KETONES,URINE NEGATIVE (NEGATIVE); LEUKOCYTE ESTERASE ,URINE 2+ (NEGATIVE); NITRITES,URINE NEGATIVE (NEGATIVE); PROTEIN,URINE NEGATIVE (NEGATIVE); UROBILINOGEN,URINE NORMAL (NORMAL)
[2018-09-25] MEDS ORDERED: MORPHINE SULFATE INJ 2 MG INJ IVP PRN (19:27)
[2018-09-25 19:28] LABS: APPEARANCE,URINE SLIGHTLY HAZY (CLEAR); BACTERIA,URINE TRACE /HPF (NEGATIVE); COLOR,URINE YELLOW (YELLOW); HYALINE CASTS, URINE RARE /LPF (NEGATIVE); RBC,URINE 0-2 /HPF (NONE SEEN); SQUAMOUS EPITHELIAL CELL,UR RARE /HPF (NEGATIVE)
[2018-09-25] MEDS: NORCO 5/325 MG TAB PO PRN (19:48)
[2018-09-25 20:19] LABS: CKMB % 1.6 % (<4); CREATINE KINASE 152 Units/L (26-192); CREATINE KINASE MB 2.5 ng/mL (0-4.0); TROPONIN I < 0.02 ng/mL (0-1.5)
[2018-09-25] MEDS: MAGNESIUM SULFATE 1 GRAM/100 mL PREMIX 1 GM/100 ML BAG IV PRN ×2 (21:00→22:44)
[2018-09-25] MEDS ORDERED: HumuLIN R ONE (21:13)
[2018-09-25] MEDS: HumuLIN R SUBCUT PRN (21:16)
[2018-09-26 01:59] LABS: CKMB % 1.8 % (<4); CREATINE KINASE 136 Units/L (26-192); CREATINE KINASE MB 2.4 ng/mL (0-4.0); TROPONIN I < 0.02 ng/mL (0-1.5)
[2018-09-26] MEDS: NS 1000 ML 1,000 ML IV SCH ×2 (05:48→17:37)
[2018-09-26] MEDS: NORCO 5/325 MG TAB PO PRN ×3 (05:49→18:18)
[2018-09-26 05:56] LABS: BASOPHILS % (AUTO) 0.6 % (0.2-1.0); EOSINOPHILS # (AUTO) 0.2 x10^3/uL (0.0-0.2); EOSINOPHILS % (AUTO) 3.9 % (0.9-2.9); HEMATOCRIT 39.3 % (36.0-47.0); LYMPHOCYTES % (AUTO) 38.3 % (21.0-51.0); MEAN CORPUSCULAR HEMOGLOBIN 28.1 pg (27.0-34.0); MEAN CORPUSCULAR VOLUME 85.2 fL (80.0-100.0); MEAN PLATELET VOLUME 7.7 fL (7.4-11.0); MONOCYTES # (AUTO) 0.5 x10^3/uL (0.3-0.8); MONOCYTES % (AUTO) 9.1 % (0.0-13.0); NEUTROPHILS # (AUTO) 2.5 x10^3/uL (2.2-4.8); NEUTROPHILS % (AUTO) 48.1 % (42.0-75.0); PLATELET COUNT 129 X10^3/uL (150.0-450.0); RED BLOOD COUNT 4.62 X10^6/uL (3.5-5.4); RED CELL DISTRIBUTION WIDTH 15.2 % (11.6-16.5); WHITE BLOOD COUNT 5.1 X10^3/uL (3.6-10.0)
[2018-09-26 06:11] LABS: ALBUMIN 2.9 g/dL (3.4-5.0); CALCIUM 8.1 mg/dL (8.5-10.1); CARBON DIOXIDE 22.8 mmol/L (21-32); CHOL/HDL RATIO 5.9 (0.0-5.0); CREATININE 1.27 mg/dL (0.55-1.02); MAGNESIUM 2.3 mg/dL (1.7-2.9); TOTAL PROTEIN 6.1 g/dL (6.4-8.2)
[2018-09-26] MEDS: HumuLIN R SUBCUT PRN ×3 (12:08→21:49)
[2018-09-26] MEDS ORDERED: SNACK - Diabetic Appropriate PO SCH (20:00)
[2018-09-27] MEDS: NORCO 5/325 MG TAB PO PRN ×3 (00:49→12:09)
[2018-09-27] MEDS: NS 1000 ML 1,000 ML IV SCH ×2 (04:40→10:03)
[2018-09-27 05:57] LABS: BASOPHILS % (AUTO) 0.6 % (0.2-1.0); EOSINOPHILS # (AUTO) 0.2 x10^3/uL (0.0-0.2); EOSINOPHILS % (AUTO) 4.7 % (0.9-2.9); HEMATOCRIT 39.1 % (36.0-47.0); HEMOGLOBIN 13.1 g/dL (12.0-16.0); LYMPHOCYTES # (AUTO) 1.3 X10^3/uL (1.3-2.9); LYMPHOCYTES % (AUTO) 32.6 % (21.0-51.0); MEAN CORPUSCULAR HEMOGLOBIN 28.3 pg (27.0-34.0); MEAN CORPUSCULAR HGB CONC 33.4 g/dL (33.0-35.0); MEAN CORPUSCULAR VOLUME 84.6 fL (80.0-100.0); MEAN PLATELET VOLUME 7.8 fL (7.4-11.0); MONOCYTES # (AUTO) 0.4 x10^3/uL (0.3-0.8); MONOCYTES % (AUTO) 9.5 % (0.0-13.0); NEUTROPHILS # (AUTO) 2.1 x10^3/uL (2.2-4.8); NEUTROPHILS % (AUTO) 52.6 % (42.0-75.0); PLATELET COUNT 133 X10^3/uL (150.0-450.0); RED BLOOD COUNT 4.62 X10^6/uL (3.5-5.4); RED CELL DISTRIBUTION WIDTH 14.9 % (11.6-16.5); WHITE BLOOD COUNT 3.9 X10^3/uL (3.6-10.0)
[2018-09-27 06:08] LABS: ALANINE AMINOTRANSFERASE 35 Units/L (12-78); ALBUMIN 2.9 g/dL (3.4-5.0); ALKALINE PHOSPHATASE 87 Units/L (46-116); ASPARTATE AMINO TRANSFERASE 16 Units/L (15-37); BLOOD UREA NITROGEN 23 mg/dL (7-18); CALCIUM 8.2 mg/dL (8.5-10.1); CARBON DIOXIDE 22.1 mmol/L (21-32); COR CA(FOR HYPOALB) 9.1 mg/dL (8.5-10.1); COR NA(FOR HYPERGLY) 151 mmol/L (136-145); CREATININE 0.97 mg/dL (0.55-1.02); SODIUM 149 mmol/L (136-145); eGFR NON BLACK RACES > 60 (>60)
[2018-09-27 06:14] LABS: CHLORIDE 115 mmol/L (98-107)
[2018-09-27 12:23] VITALS: BP 141/74
--- NOTE | 2018-10-02 21:53 | DR.H&P ---
H&P - History & Physical for Day of: H&P Date: 09/25/18 - Chief Complaint Chief Complaint: CHEST PAIN, SOB - History of Present Illness History of Present Illness: IS A 68 YEAR OLD PATIENT OF OURS WHO PRESENTED TO THE ER WITH COMPLAINTS OF SHORTNESS OF BREATH, CHEST PAIN, AND LOWER BACK PAIN. SHE REPORTS THAT SYMPTOMS STARTED EARLIER IN THE DAY. ON ARRIVAL, VITALS WERE 98.6-66-16-97%RA-106/59. LABS WERE OBTAINED. ABNORMAL LAB VALUES INCLUDE THE FOLLOWING: PLT COUNT 136, BUN 45, CREATININE 1.42, GLUCOSE 228, CREATINE KINASE 194. URINALYSIS REVEALED: WBC 3-5, RBC 0-2, LEUKOCYTES 2+, BACTERIA TRACE. CHEST XRAY REVEALED: No acute cardiopulmonary disease. EKG REVEALED: SINUS RHYTHM WITH HR 68. SHE WAS ADMITTED TO THE HOSPITAL FOR FURTHER EVALUATION AND TREATMENT OF CHEST PAIN, SOB, AND DEHYDRATION. SHE WAS STARTED ON NORMAL SALINE AT 50ML/HR. WE PLAN TO OBTAIN SERIAL CARDIAC ENZYMES AND EKGs. OTHERWISE, WE WILL FOLLOW UP WITH AM LABS AND CONTINUE TO MONITOR. - Past Medical History Past Medical History: Coronary Artery Disease, Hypertension, Diabetes, Hypothyroidism, Hyperthyroidism, CHF Additional Medical History: Cataracts, Hx Breast Ca - Past Surgical History Surgical History: Appendectomy, Cholecystectomy, Hysterectomy - Family History Family Medical History: Diabetes Mellitus, Cancer, [place], Hypertension - Social History Does patient currently use any type of tobacco product: No Have you used tobacco products in the last 12 months: No Type of Tobacco Use: None How many years tobacco product used: 14 Does any household member use tobacco: No Alcohol Use: None Drug Use: None - Medications Home Medications: No Known Drug Allergies Allergy (Verified 05/25/18 13:47) CONTINUE taking the following medications Stool Softener 1 tab PO PRN PRN 09/26/18 [History] gabapentin [Neurontin] 300 mg PO TID 09/26/18 [History] losartan 100 mg PO DAILY 09/26/18 [History] meloxicam 7.5 mg PO DAILY PRN 09/26/18 [History] metoprolol tartrate 100 mg PO BID 09/26/18 [History] nifedipine [Procardia XL] 30 mg PO DAILY 09/26/18 [History] nitroglycerin 0.4 mg SUBLINGUAL PRN PRN 09/26/18 [History] - Review of Systems Constitutional: Weakness Eyes: No Symptoms Reported ENT: No Symptoms Reported Respiratory: See HPI, Shortness of Breath, SOB with Excertion. denies: Sputum, Wheezing Cardiovascular: Chest Pain Gastrointestinal: No Symptoms Reported Genitourinary: No Symptoms Reported Musculoskeletal: Back Pain Skin: No Symptoms Reported Neurological: Weakness - Physical Exam Vital Signs: Temperature 97.6 F Pulse Rate [Right Radial] 62 Pulse Rate 66 Respiratory Rate 20 Blood Pressure [Left Calf] 168/75 Blood Pressure [Right Arm] 141/74 Blood Pressure 106/59 O2 Sat by Pulse Oximetry 97 Oriented: Normal Eyes: Normal Ear: Normal Nose: Normal Throat: Normal Respiratory: Diminished Throughout Cardiovascular: Normal. negative: S3, S4, Murmur : Normal Auscultation: Bowel Sounds: Normal Palpation: Normal Tenderness: Normal Skin: Normal Musculoskeletal: Back:Lumbar, Tender Psychiatric: Normal Mood Description: Calm Affect: Normal Speech Pattern: Clear - Assessment/Plan (1) Chest pain, rule out acute myocardial infarction Status: Acute Plan: SERIAL CARDIAC ENZYMES AND EKG, SUPPLEMENTAL OXYGEN, TELEMETRY, CONTINUE TO MONITOR (2) Dehydration Status: Acute Plan: NORMAL SALINE AT 50ML/HR, CONTINUE TO MONITOR (3) Shortness of breath Status: Acute - Allergies Allergies/Adverse Reactions: Allergies Allergy/AdvReac Type Severity Reaction Status Date / Time No Known Drug Allergies Allergy Verified 05/25/18 13:47
== END 2018-09-27 12:24 | disposition home or self-care (01) ==
LOC: OBS 12:23 → ER 12:23 → OBS 16:51
PROVIDERS: ADMIT Internal Medicine; ATTEND Internal Medicine
DX: E03.8 Other specified hypothyroidism; R26.89 Other abnormalities of gait and mobility; E86.0 Dehydration; I25.10 Atherosclerotic heart disease of native coronary artery without angina pectoris; E11.65 Type 2 diabetes mellitus with hyperglycemia; R94.4 Abnormal results of kidney function studies; R07.89 Other chest pain; I10 Essential (primary) hypertension; M54.5 Low back pain; R06.02 Shortness of breath; E87.0 Hyperosmolality and hypernatremia
CPT/HCPCS: 36415; 71010; 71045; 80053; 80061; 81001; 82550; 82553; 83735; 83880; 84484; 85025; 85378; 85610; 85730; 93005; 94760; 96365; 96367; 96372; 96374; 97162; 97166; 97535; 99283; 99284; A4222; G0378; J1815; J2270; J3475; J7030